=== PATIENT | female | born 1965 | race Caucasian/White ===

== ENCOUNTER → 2017-07-31 | Outpatient (CLI) | payer OTHER ==
--- NOTE | 2017-07-31 11:56 | MM ---
Reason for exam: clinical finding. Baseline mammogram. History: Family history of breast cancer in maternal aunt at age 70. Took hormonal contraceptives for 1 year. Indicated problem(s): palpable abnormality and pain in the right breast. Physical Findings: Nurse Summary: adenopathy 0.5cm outer left breast 11 o'clock (nurse cw). MG Diagnostic Mammo w CAD RONALD Bilateral CC and MLO view(s) were taken. LM and spot compression CC view(s) were taken of the right breast. There are scattered fibroglandular densities. There is a right upper outer quadrant 7mm mass, likely a lymph node. Ultrasound will be performed. No suspicious abnormality in the left breast. These results were verbally communicated with the patient and result sheet given to the patient on 07/31/17. ASSESSMENT: Incomplete: need additional imaging evaluation, BI-RAD 0 RECOMMENDATION: Ultrasound of the right breast. (upper outer quadrant)
--- NOTE | 2017-07-31 11:58 | USB ---
Reason for exam: additional evaluation requested from abnormal screening. History: Family history of breast cancer in maternal aunt at age 70. Took hormonal contraceptives for 1 year. US Breast Workup Limited RT Right limited breast ultrasound including focal area of concern, retroareolar and axilla demonstrates a 8 x 7 x 8mm oval, solid, hypoechoic lesion at the axilla. This appears to be located partially in the skin. Surgical consultation with excision of the palpable mass is recommended due to the risk of the chemical mastitis with biopsy. These results were verbally communicated with the patient and result sheet given to the patient on 07/31/17. ASSESSMENT: Suspicious, BI-RAD 4 RECOMMENDATION: Surgical consultation of the right breast. Called Dr. Montez with mammographic findings and has scheduled an appointment for the patient for 08/10/17 at 9:[address] Sweet. PRELIMINARY REPORT CALLED AND FAXED TO DR. SWEET ON 07/31/17.
== END | disposition home or self-care (01) ==
LOC: RADMAMWWP 10:16
PROVIDERS: ATTEND Family Medicine
DX: N63.11 Unspecified lump in the right breast, upper outer quadrant (principal); R92.8 Other abnormal and inconclusive findings on diagnostic imaging of breast
CPT/HCPCS: 77066

== ENCOUNTER → 2017-08-10 | Outpatient (CLI) | payer OTHER ==
[2017-08-10 10:16] VITALS: BP 120/66; PULSE 66; BMI 36.0
--- NOTE | 2017-08-10 11:13 | P.GSHP ---
History of Present Illness H&P Date: 08/10/17 Patient is a 52 year old white female with a complaint of a right upper outer quadrant breast palpable mass. It has been present since January 2017. It has not changed in size. At times it is painful. The patient denies any nipple discharge or changes. The patient had a recent mammogram 07/31/2017 which revealed no lesions of concern in the left breast and in the right breast a 7 mm mass for which ultrasound was recommended. Ultrasound revealed an 8 x 7 x 8 mm lesion in the right upper outer quadrant/axillary area of the breast. Surgical excision was recommended due to the location and the skin and risk of chemical mastitis with biopsy. family history: maternal aunt: uterine, cervical, breast, lung (4 different aunts) daughter: rhabdomyosarcoma, thyroid cancer mother: lung, a smoker menstral: 12 : 4 preg, 3 live births, first at 22, breast fed all menopause; still having periods regular, had an ablation bleeding BCP: none Hormones: none past surgical history: 1. parathyroid surgery 2. tubaligation past medical history: 1. diabetes 2. overweight ROS: HEENT: parathyroid resection lungs: asthma heart: none GI: none : none muscuskeletal: arthritis neurologic: none skin: none endocrine: DM, hypothyroid had radioactive iodine related to hyperthyroid in past - Constitutional Constitutional: Denies chills, Denies fever - EENT Comment: glasses to drive Eyes: denies blurred vision, denies pain Ears: deny: decreased hearing, earache, tinnitus Ears, nose, mouth and throat: Reports sore throat, Denies headache - Breasts Breasts: bilateral: as per HPI - Cardiovascular Cardiovascular: Denies chest pain, Denies shortness of breath - Respiratory Comment: asthma, pneumonia in past - Gastrointestinal Gastrointestinal: Reports nausea, Denies abdominal pain, Denies diarrhea, Denies vomiting - Genitourinary (Female) Genitourinary: Denies dysuria, Denies hematuria - Musculoskeletal Comment: arthritis - Integumentary Integumentary: Denies pruritus, Denies rash - Neurological Neurological: Denies numbness, Denies weakness - Psychiatric Psychiatric: Denies anxiety, Denies depression - Endocrine Comment: hypothyroid, diabetis - Hematologic/Lymphatic Comment: no bleeding abnormalities - Allergic/Immunologic Allergic/Immunologic: Reports seasonal allergies Past Medical History Past Medical History: Asthma, Diabetes Mellitus, Hyperlipidemia, Hypertension, Osteoarthritis (OA), Thyroid Disorder Additional Past Medical History / Comment(s): ANEMIA, ASTHMA-COLD WEATHER & EXERCISE INDUCED (NO MEDS). BACK AND ARTHRITIS PAIN IN KNEES. hx of graves disease History of Any Multi-Drug Resistant Organisms: None Reported Past Surgical History: Tubal Ligation, Uterine Ablation Past Anesthesia/Blood Transfusion Reactions: No Reported Reaction Past Psychological History: No Psychological Hx Reported Smoking Status: Never smoker Past Alcohol Use History: Rare Past Drug Use History: None Reported - Past Family History Mother Family Medical History: Cancer Additional Family Medical History / Comment(s): LUNG AND LIVER CANCER Daughter(s) Family Medical History: Cancer Additional Family Medical History / Comment(s): RHABDOMYOSARCOMA & HURTHLE CELL CANCER OF THYROID Medications and Allergies Home Medications Medication Instructions Recorded Confirmed Type Cetirizine HCl [Zyrtec] 10 mg PO DAILY PRN 12/21/14 08/10/17 History Multivitamins, Thera [Theragran] 1 each PO DAILY 12/21/14 08/10/17 History Simvastatin [Zocor] 40 mg PO HS 12/21/14 08/10/17 History Triamterene-Hctz 37.5-25Mg 1 each PO DAILY 12/21/14 08/10/17 History [Dyazide] amLODIPine [Norvasc] 10 mg PO DAILY 12/21/14 08/10/17 History traMADol HCl [Ultram] 50 mg PO Q6H PRN 12/21/14 08/10/17 History Levothyroxine Sodium [Synthroid] 175 mcg PO DAILY 12/22/14 08/10/17 History Allergies Allergy/AdvReac Type Severity Reaction Status Date / Time Penicillins Allergy Severe Anaphylaxis Verified 12/21/14 08:41 FRESH FRUITS AND VEGETABLES Allergy Severe Anaphylaxis Uncoded 12/21/14 08:40 BETA BLOCKERS Allergy Anaphylaxis Uncoded 12/22/14 10:16 Surgical - Exam Vital Signs Pulse BP 66 120/66 08/10/17 10:09 08/10/17 10:09 - General moderate distress, obese - Eyes normal ocular movement - ENT no hearing loss, no congestion - Neck incision clean no masses, trachea midline, no lymphadectomy, no venous distension - Respiratory normal respiratory effort, clear to auscultation - Cardiovascular Rhythm: regular Heart Sounds: normal: S1, S2 - Abdomen Abdomen: soft, non tender, no guarding, no rigid, no rebound - Neurologic no disoriented, no combative - Musculoskeletal normal gait, normal posture - Psychiatric oriented to time, oriented to person, oriented to place, speech is normal, memory intact Breast examination: Right breast: in the upper outer quadrant area there is approximately an 8 mm firm nodular area corresponding to that seen on mammogram and ultrasound no other dominant masses or nodules of concern Left breast: Multiple positional exam no dominant mass or nodules of concern Bilateral axilla: No adenopathy of concern Assessment and Plan Assessment: Impression/plan: 1. Palpable abnormality right breast not conducive to a core biopsy secondary to peripheral location involving the skin. 4 recommend as per radiology surgical excision 2. Diabetes 3. arthritis 4. History of pneumonia in the past 5. Hypothyroidism/status post resection of parathyroid Plan: 1. Surgical excision of right breast Mass. 2. Medical management of medical conditions Cc: Dr. Montez
== END ==
LOC: WWCWWP 10:06
PROVIDERS: ATTEND Surgery
DX: Z53.9 Procedure and treatment not carried out, unspecified reason (principal)

== ENCOUNTER 2017-08-21 11:54 | Day surgery (SDC) | payer OTHER ==
[2017-08-15 11:45] VITALS: BMI 33.8
[~2017-08-21 11:54] MED LIST: CLINDAMYCIN 900 MG in DEXTROSE 5% IN WATER 50 ML IVPB ONE; DEXAMETHASONE SOD PHOSPHATE 10 MG/ML 1 ML VIAL IV ONE; HYDROmorphone 0.5 MG/0.5 ML SYRINGE IVP PRN; LACTATED RINGERS 1,000 ML IV SCH; MORPHINE SULFATE 2 MG/ML SYRINGE IV PRN; ONDANSETRON 4 MG/2 ML VIAL IVP ONE; ONDANSETRON 4 MG/2 ML VIAL IVP PRN
[2017-08-21 12:31] VITALS: TEMP 99.1
[2017-08-21 12:56] LABS: Glucose,Whole Blood 123 mg/dL (75-99)
[2017-08-21] MEDS ORDERED: LIDOCAINE 1% 20 ML VIAL (10MG/ML) FOR IV START INTRADERMA ONE (13:04)
[2017-08-21] MEDS ORDERED: HEPARIN SODIUM,PORCINE 5,000 UNIT/ML 1 ML VIAL SQ ONE (14:00)
[2017-08-21] MEDS ORDERED: fentaNYL (PF) 50 MCG/ML 2 ML AMP ONE (14:11)
[2017-08-21] MEDS ORDERED: LIDOCAINE 1% INJ 10MG/ML (20 ML MDV) ONE (14:11)
[2017-08-21] MEDS ORDERED: MIDAZOLAM 2 MG/2 ML VIAL ONE (14:11)
[2017-08-21] MEDS ORDERED: PROPOFOL 10 MG/ML 20 ML VIAL IV ONE (14:11)
[2017-08-21] MEDS ORDERED: LIDOCAINE 1% INJ 10MG/ML (20 ML MDV) SQ ONE ×2 (14:27)
[2017-08-21] MEDS ORDERED: LACTATED RINGERS 1,000 ML IV ONE (14:35)
--- NOTE | 2017-08-21 14:35 | P.OP ---
Date of Procedure: 08/21/17 Preoperative Diagnosis: Superficial nodule right lateral breast Postoperative Diagnosis: Same Procedure(s) Performed: Excision lesion right lateral breast Anesthesia: MAC Surgeon: Cecilia Sweet Estimated Blood Loss (ml): 1 IV fluids (ml): 200 Pathology: other (Right lateral breast tissue) Condition: stable Disposition: PACU Indications for Procedure: Lesion of concern right lateral breast, biopsy core biopsy not done as this was too superficial Operative Findings: Nodule right lateral breast Description of Procedure: Patient was taken to the operating room and following sedation the right lateral breast was prepped and draped in a sterile fashion. Wide excision of the palpable abnormality was performed. The area was anesthetized using 1% lidocaine. After assured that hemostasis was attained the deep tissues were closed with a 3-0 Vicryl suture. The skin was closed with 4-0 Monocryl. The patient tolerated the procedure in stable condition. All instrument and sponge counts correct at the end of the case. The specimen was painted for orientation.
--- NOTE | 2017-08-21 14:37 | P.DS ---
Providers Attending physician: Cecilia Sweet Primary care physician: Wood Montez Plan - Discharge Summary New Discharge Prescriptions: No Action Cetirizine HCl [Zyrtec] 10 mg PO DAILY traMADol HCl [Ultram] 50 mg PO Q6H PRN PRN Reason: Pain Triamterene-Hctz 37.5-25Mg [Dyazide] 1 each PO DAILY Simvastatin [Zocor] 40 mg PO HS Multivitamins, Thera [Theragran] 1 each PO DAILY amLODIPine [Norvasc] 10 mg PO DAILY Levothyroxine Sodium [Synthroid] 175 mcg PO DAILY metFORMIN HCL [Glucophage] 500 mg PO BID Ondansetron HCl [Zofran] 4 mg PO DAILY PRN PRN Reason: Nausea Discharge Medication List Cetirizine HCl [Zyrtec] 10 mg PO DAILY 12/21/14 [History] Multivitamins, Thera [Theragran] 1 each PO DAILY 12/21/14 [History] Simvastatin [Zocor] 40 mg PO HS 12/21/14 [History] Triamterene-Hctz 37.5-25Mg [Dyazide] 1 each PO DAILY 12/21/14 [History] amLODIPine [Norvasc] 10 mg PO DAILY 12/21/14 [History] traMADol HCl [Ultram] 50 mg PO Q6H PRN 12/21/14 [History] Levothyroxine Sodium [Synthroid] 175 mcg PO DAILY 12/22/14 [History] metFORMIN HCL [Glucophage] 500 mg PO BID 08/15/17 [History] Ondansetron HCl [Zofran] 4 mg PO DAILY PRN 08/21/17 [History] Follow up Appointment(s)/Referral(s): Cecilia Sweet MD [STAFF PHYSICIAN] - 1 Week Activity/Diet/Wound Care/Special Instructions: Do not Drive today Discharge Disposition: HOME SELF-CARE
[2017-08-21 14:57] VITALS: RESP 18
[2017-08-21 15:21] VITALS: BP 124/79; PULSE 79
== END 2017-08-21 15:25 | disposition home or self-care (01) ==
LOC: OR 11:54
PROVIDERS: ATTEND Surgery
DX: L72.0 Epidermal cyst (principal); E11.9 Type 2 diabetes mellitus without complications; M19.90 Unspecified osteoarthritis, unspecified site; E89.2 Postprocedural hypoparathyroidism; E66.3 Overweight; Z68.33 Body mass index [BMI] 33.0-33.9, adult; J45.909 Unspecified asthma, uncomplicated; E78.5 Hyperlipidemia, unspecified; I10 Essential (primary) hypertension; D64.9 Anemia, unspecified; Z79.890 Hormone replacement therapy; Z79.899 Other long term (current) drug therapy; Z79.84 Long term (current) use of oral hypoglycemic drugs; Z98.51 Tubal ligation status; Z88.0 Allergy status to penicillin; Z88.8 Allergy status to other drugs, medicaments and biological substances; Z91.018 Allergy to other foods
CPT/HCPCS: 81025; 88304; 19120; J2250; J1100; J2405; J2001; J3010; J2704; 88305

== ENCOUNTER → 2017-08-31 | Outpatient (CLI) | payer OTHER ==
[2017-08-31 11:06] VITALS: BP 132/71; PULSE 75; BMI 26.6
--- NOTE | 2017-08-31 11:25 | P.PN ---
Progress Note - Text Progress Note Date: 08/31/17 post op: path: sebaceous cyst incision: clean and dry plan: follow up as needed and 1 year for breast exam CC: DR. Montez
== END | disposition home or self-care (01) ==
LOC: WWCWWP 10:52
PROVIDERS: ATTEND Surgery
DX: Z01.419 Encounter for gynecological examination (general) (routine) without abnormal findings (principal)

== ENCOUNTER → 2017-10-15 | Outpatient (CLI) | payer OTHER ==
--- NOTE | 2017-10-15 11:49 | EST ---
EXERCISE STRESS AGE: 52 SEX: F HT: 5'2" WT: 200 PROTOCOL: Jas Stress Test STAGE: I DURATION OF EXERCISE: 4:30 HEART RATE REST: 64 BLOOD PRESSURE REST: 125/71 MAXIMUM HEART RATE ACHIEVED: 149 MAXIMUM BLOOD PRESSURE: 198/81 85% MPHR: 142 100% MPHR: 167 METS: 6.0 INDICATIONS: Palpitations. CLINICAL INFORMATION: Baseline EKG shows sinus rhythm, normal axis, normal intervals. Patient exercised on Jas protocol for a total of 4.5 minutes, achieving 6 METs, 89% of predicted maximal heart rate without chest pain or diagnostic ST-segment depression. Patient had frequent ventricular ectopy including a 5-beat run of nonsustained VT on treadmill. CONCLUSION: 1. Poor exercise tolerance. 2. Negative stress test by EKG criteria. 3. Exercise induced ventricular ectopy including nonsustained VT. VICENTE / KIMN: [id number] /
--- NOTE | 2017-10-24 13:37 | EM ---
EVENT MONITOR SEVEN-DAY EVENT MONITOR: DATE OF SERVICE: 10/15/2017 INDICATIONS: Palpitations. The patient was monitored for one week. The baseline rhythm appeared to be a sinus mechanism. During this one week monitoring, the patient did have multiple episodes of sinus tachycardia with a heart rate around 120 beats per minute. There is no evidence of any arrhythmia noted in the term of atrial fibrillation or atrial flutter or any supraventricular tachycardia. No evidence of any ventricular ectopic events noted. No evidence of any sinus pause or sinus arrest seen. The patient reported no symptoms. CONCLUSION: 1. This is a one week event monitor. 2. Sinus rhythm as a baseline mechanism. 3. Few episodes of sinus tachycardia with a heart rate of 110 to 120 beats per minute. 4. No evidence of any bradyarrhythmia noted. 5. There is no evidence of any sinus pause or sinus arrest. 6. The patient reported no symptoms. MMODL / IJN: [id number] /
== END | disposition home or self-care (01) ==
LOC: RADNMMAIN 10:52
PROVIDERS: ATTEND Family Medicine
DX: R00.2 Palpitations (principal)
CPT/HCPCS: 93017; 93270; 93271

== ENCOUNTER → 2018-04-22 | Outpatient (CLI) | payer OTHER ==
--- NOTE | 2018-04-22 10:35 | XR ---
EXAMINATION TYPE: XR shoulder complete LT DATE OF EXAM: 04/22/2018 COMPARISON: NONE HISTORY: Pain TECHNIQUE: Three views are submitted. FINDINGS: The osseous structures are intact. There is no acute fracture or dislocation. Arthropathy of the AC joint. IMPRESSION: 1. No acute process.
== END ==
LOC: RADXRMAIN 10:15
PROVIDERS: ATTEND Family Medicine
DX: M25.512 Pain in left shoulder (principal)

== ENCOUNTER → 2018-07-11 | Outpatient (CLI) | payer OTHER ==
--- NOTE | 2018-07-13 18:06 | MR ---
EXAMINATION TYPE: MR shoulder LT wo con DATE OF EXAM: 07/11/2018 COMPARISON: None HISTORY: Pain in left shoulder TECHNIQUE: Multiplanar, multisequence imaging of the left shoulder is performed without contrast. FINDINGS: Subscapularis tendon is intact. Biceps tendon is intact. There is some spurring at the AC joint. Ther e is 5 mm focus of increased signal in the supraspinatus tendon proximal to the attachment on the gre ater tuberosity. This is consistent with a full-thickness tear. The glenoid monroe appear intact. I see no bony destructive process. IMPRESSION: There is small full-thickness tear of the supraspinatus tendon. No retraction. Hypertrophic spurring at the AC joint without significant subacromial impingement. No fracture.
== END | disposition home or self-care (01) ==
LOC: RADMRIMAIN 11:37
PROVIDERS: ATTEND Orthopaedic Surgery
DX: M75.122 Complete rotator cuff tear or rupture of left shoulder, not specified as traumatic (principal); M89.312 Hypertrophy of bone, left shoulder

== ENCOUNTER 2018-08-16 06:37 | Day surgery (SDC) | payer OTHER ==
[2018-08-13 15:59] VITALS: BMI 36.6
--- NOTE | 2018-08-15 16:33 | HP ---
HISTORY AND PHYSICAL CHIEF COMPLAINT: Left shoulder pain. HISTORY OF PRESENT ILLNESS: The patient is a 53-year-old [id number]-[id number] brokerage clerk/senior business analyst who presents with left shoulder pain, worsening over the past 6 months. She notes stiffness, soreness and pain with overhead activity. She is also having significant night symptoms. She has tried medications and therapy, with minimal relief. PAST MEDICAL HISTORY: Significant for: 1. Asthma. 2. Type 2 diabetes. 3. Hypercholesterolemia. 4. Hypertension. 5. Hypothyroidism. PAST SURGICAL HISTORY: Negative. MEDICATIONS: 1. Amlodipine. 2. Januvia. 3. Metformin. 4. Metoprolol. 5. Synthroid. 6. Cholesterol medications. 7. Hydrochlorothiazide. ALLERGIES: 1. PENICILLIN. 2. BETA BLOCKERS. FAMILY HISTORY: Significant for cancer. SOCIAL HISTORY: Negative for current tobacco or alcohol use. REVIEW OF SYSTEMS: Sixteen-point review of systems otherwise reviewed and noncontributory. PHYSICAL EXAMINATION: On examination, the patient is approximately 5 feet 2 inches, 213 pounds of endomorphic habitus. HEENT exam is nonfocal. Neck is supple. Passive motion left shoulder. Forward elevation 90 degrees. Actively she is able to forward elevate 70 degrees. External rotation with arm at side is 20 degrees, internal rotation into the buttock. Motor strength is 5 minus over 5 for abduction and external rotation. Impingement test, Neer test and Speed test are positive. Distal neurovascular exam otherwise appears to be intact in the left upper extremity. MRI report of left shoulder 07/11/2018 shows a small full-thickness tear involving the supraspinatus tendon. IMPRESSION: 1. Left shoulder impingement with symptomatic rotator cuff tear. 2. Left shoulder adhesive capsulitis. 3. [id number] diabetes. RECOMMENDATION: I talked to the patient at length regarding her condition along with treatment options. At this point she remains quite symptomatic despite conservative measures. After thorough discussion, she opted to proceed with surgery. We will plan to proceed with arthroscopic evaluation and probable subacromial decompression, possible rotator cuff debridement versus repair, in addition to possible manipulation under anesthesia. We will likely perform that as an outpatient procedure. Risks and benefits were discussed at length in layman's terms. MMODL / IJN: [id number] /
[~2018-08-16 06:37] MED LIST changes: +LIDOCAINE 1% 20 ML VIAL (10MG/ML) FOR IV START INTRADERMA PRN; -MORPHINE SULFATE 2 MG/ML SYRINGE IV PRN; -ONDANSETRON 4 MG/2 ML VIAL IVP PRN; +Pre Op ABX Message 1 EACH MISC MISCELLANE ONE; +SCOPOLAMINE 1.5MG/72HR PATCH TRANSDERM ONE
[2018-08-16] MEDS ORDERED: MIDAZOLAM (PF) 2 MG/2 ML VIAL IVP ONE (07:23)
[2018-08-16 07:32] LABS: Glucose,Whole Blood 158 mg/dL (75-99)
--- NOTE | 2018-08-16 07:55 | P.ONQ ---
Anesthesiology Proc Note - PNB - Peripheral Nerve Block Performed Left Interscalene Single Time Out Performed: Yes Procedure Start Time: : Procedure Stop Time: : Indication: Acute Post-Operative Pain, Analgesia, Requested by physician Sedation Type: Sedate with meaningful contact maintained Preparation: Sterile Prep Position: Supine Catheter: None Needle Types: On-Q Needle Size: 50mm (2") Needle Gauge: 21 Technique: Ultrasound Injectate: Other (see comment) (4mg dexamethasone) Blood Aspirated: No Pain Paresthesia on Injection Noted: No Resistance on Injection: Normal Events: Uneventful and Well Tolerated
[2018-08-16] MEDS ORDERED: fentaNYL (PF) 50 MCG/ML 2 ML AMP ONE (07:58)
[2018-08-16] MEDS ORDERED: ROPIVACAINE 5 MG/ML 30 ML VIAL ONE (07:58)
[2018-08-16] MEDS ORDERED: SUCCINYLCHOLINE CHLORIDE 100 MG/5 ML SYR IV ONE (07:58)
[2018-08-16] MEDS ORDERED: PROPOFOL 10 MG/ML 20 ML VIAL IV ONE (07:58)
[2018-08-16] MEDS ORDERED: MIDAZOLAM 2 MG/2 ML VIAL ONE (07:58)
[2018-08-16] MEDS ORDERED: LIDOCAINE 1% INJ 10MG/ML (20 ML MDV) ONE (07:58)
[2018-08-16] MEDS ORDERED: DEXAMETHASONE SOD PHOSPHATE 4 MG/ML 1 ML VIAL ONE (07:58)
[2018-08-16] MEDS ORDERED: ePHEDrine SULFATE/0.9% NACL/PF 50 MG/5 ML SYRINGE IV ONE (07:58)
[2018-08-16] MEDS ORDERED: EPINEPHrine (PF) 1 ML in SODIUM CHLORIDE 0.9% IRRIGATIO 3,000 ML IRRIGATION ONE ×8 (08:08)
[2018-08-16] MEDS ORDERED: LACTATED RINGERS 1,000 ML IV ONE ×4 (09:12)
--- NOTE | 2018-08-16 09:22 | P.OP ---
Date of Procedure: 08/16/18 Preoperative Diagnosis: Left shoulder impingement/rotator cuff tear/adhesive capsulitis Postoperative Diagnosis: Same in addition to synovitis Procedure(s) Performed: Left shoulder arthroscopic subacromial decompression/rotator cuff repair/manipulation under anesthesia/synovectomy Implants: Arthrex 4.75 mm swivel lock anchor 1 Anesthesia: charli DIAZ Surgeon: Darion Kenny Environmental Field Team Member #1: Wu Feliciano Estimated Blood Loss (ml): 10 Pathology: none sent Condition: stable Disposition: PACU Indications for Procedure: The patient's a 53-year-old female who presents with progressive left shoulder pain and stiffness despite conservative measures. A discussion of the risks and benefits of continued conservative measures versus operative intervention was made with patient. She opted to proceed with surgery. Operative risks to include infection, neurovascular injury, development of blood clots, possible incomplete resolution of symptoms, possible worsening symptoms and need for subsequent procedures was discussed. Informed consent was obtained. Operative Findings: As below Description of Procedure: The patient was brought to the operating room, and after induction of general anesthesia was placed in a beachchair position. A preoperative interscalene block was placed for postoperative analgesia. I examined the left shoulder. There were significant adhesions and block to passive motion. I gently manipulated her shoulder with her arm at her side initially obtaining 60 of external rotation. Moderate adhesions were encountered. I then obtained full forward elevation. Again moderate adhesions were encountered. The left upper extremity was prepped and draped in normal fashion. The bony outlines the acromion, distal clavicle, and coracoid process were outlined with a skin marker. The glenohumeral joint was inflated with 50 mL of saline utilizing a spinal needle from posterior approach. A posterior portal was made through a 5 mm skin incision 1 cm medial and inferior to the posterior lateral border time. A blunt trocar was used to easily into the joint. Diagnostic arthroscopy was performed. An anterior portal was made just lateral to the coracoid process entering the joint above the subscapularis tendon. The subscapularis tendon appeared to be intact. There was significant synovitis of the rotator interval that was debrided with a motorized shaver and with the aid of electrocautery. Anterior labrum was intact. The inferior recess was inspected. The posterior labrum was intact. The biceps appeared to be intact as well as the anchor. On inspection the rotator cuff it appeared to be intact on the articular surface. A lateral portal was made 2 centimeters inferior to the anterior lateral border of the acromion. The soft tissue on the undersurface of the acromion was debrided with a motorized shaver and electrocautery clearly defining the anterior medial and lateral borders as well as the distal clavicle. An anterior inferior acromioplasty was performed with a motorized marni starting anterolateral, then extending this posteriorly, then extending this medially. I converted to a flat acromion and this was verified in the posterior and lateral viewing portals. On inspection the rotator cuff, a high-grade partial-thickness tear involving the anterior aspect the supraspinatus was noted measuring 1 cm. This tear was completed with a shaver. The greater tuberosity was lightly decorticating with a shaver down to a bleeding bony surface. A #2 fiber tape was passed through the rotator cuff with a scorpion suture passer. A lateral anchor was then placed utilizing the appropriate starting awl. A 4.75 mm swivel lock anchor was placed. Good purchase was obtained. Final arthroscopic view showed adequate compression at the footprint. The arthroscope was then removed. The portals were closed with simple 3-0 nylon sutures. A sterile dressing was applied in addition to a sling. The patient was then awoken from general anesthesia and transferred to recovery room in good condition. Blood loss was estimated at 10 mL. No complications were incurred. Sponge and needle counts were correct in the case. Ayan TURNER assisted and the major components of the case to include arm positioning, anchor placement, and rotator cuff repair.
[2018-08-16 09:26] VITALS: TEMP 97
[2018-08-16 09:38] LABS: Glucose,Whole Blood 209 mg/dL (75-99)
[2018-08-16 10:57] VITALS: RESP 20
[2018-08-16 11:25] VITALS: BP 145/81; PULSE 99
== END 2018-08-16 11:33 | disposition home or self-care (01) ==
LOC: OR 06:37
PROVIDERS: ATTEND Orthopaedic Surgery
DX: S46.012A Strain of muscle(s) and tendon(s) of the rotator cuff of left shoulder, initial encounter (principal); M75.42 Impingement syndrome of left shoulder; M75.02 Adhesive capsulitis of left shoulder; M65.812 Other synovitis and tenosynovitis, left shoulder; J45.909 Unspecified asthma, uncomplicated; E11.9 Type 2 diabetes mellitus without complications; E78.00 Pure hypercholesterolemia, unspecified; I10 Essential (primary) hypertension; E03.9 Hypothyroidism, unspecified; E66.9 Obesity, unspecified; Z68.36 Body mass index [BMI] 36.0-36.9, adult; Z79.899 Other long term (current) drug therapy; Z79.84 Long term (current) use of oral hypoglycemic drugs; Z79.890 Hormone replacement therapy; Z80.9 Family history of malignant neoplasm, unspecified; Z88.0 Allergy status to penicillin; Z88.8 Allergy status to other drugs, medicaments and biological substances
CPT/HCPCS: 29827; 29826; 64415; C1713 ×2; C1894; J2250 ×2; J1100 ×2; J2405; J0171; J2001; J3010; J2795; J0330; J2704

== ENCOUNTER 2019-10-12 17:30 | Emergency (ER) | payer OTHER ==
[2019-10-12] MEDS ORDERED: CYCLOBENZAPRINE 10 MG TAB PO STA (18:30)
--- NOTE | 2019-10-12 18:49 | XR ---
EXAMINATION TYPE: XR chest 2V DATE OF EXAM: 10/12/2019 COMPARISON: NONE HISTORY: Chest pain TECHNIQUE: 2 views FINDINGS: Heart and mediastinum are normal. Lungs are clear. Diaphragm is normal. Bony thorax appears normal. IMPRESSION: Normal chest.
--- NOTE | 2019-10-12 19:05 | ED ---
General Adult HPI - General Chief complaint: Neck Pain/Injury Stated complaint: neck/shoulder pain Time Seen by Provider: 10/12/19 17:57 Source: patient, RN notes reviewed Mode of arrival: ambulatory Limitations: no limitations - History of Present Illness Initial comments: 54-year-old female With a past medical history of hyperlipidemia, hypertension, diabetes mellitus, asthma presents to the emergency department for a chief complaint of upper back pain. Patient has had upper back pain since today after she worked all day on her computer. States she hunches over the computer and this was causing spasms. States it goes up into her neck. Patient states it does hurt to move her neck. Patient reports it feels like spasms around her shoulder blades. Patient reports this happened to her several years ago as well. States she tried tramadol which helped for 4 hours and the pain returned. Patient states she is here because she would like a muscle relaxer.Patient has no other complaints at this time including shortness of breath, chest pain, abdominal pain, nausea or vomiting, headache, or visual changes. - Related Data Home Medications Medication Instructions Recorded Confirmed Cetirizine HCl [Zyrtec] 10 mg PO DAILY 12/21/14 08/13/18 Multivitamins, Thera [Theragran] 1 each PO DAILY 12/21/14 08/13/18 Simvastatin [Zocor] 40 mg PO HS 12/21/14 08/16/18 Triamterene-Hctz 37.5-25Mg 1 each PO BID 12/21/14 08/16/18 [Dyazide] traMADol HCl [Ultram] 50 mg PO Q4H PRN 12/21/14 08/16/18 Levothyroxine Sodium [Synthroid] 175 mcg PO DAILY 12/22/14 08/13/18 metFORMIN HCL [Glucophage] 500 mg PO BID 08/15/17 08/16/18 Albuterol Inhaler (Mhu) [Ventolin 1 - 2 puff INHALATION RT-Q6H PRN 08/13/18 0 08/13/18 Hfa Inhaler] Empagliflozin [Jardiance] 10 mg PO DAILY 08/13/18 08/13/18 sitaGLIPtin [Januvia] 25 mg PO DAILY 08/13/18 08/13/18 Previous Rx's Medication Instructions Recorded HYDROcodone/APAP 7.5-325MG [[place] 1 each PO Q6HR PRN #28 tab 08/16/18 7.5] Cyclobenzaprine [Flexeril] 10 mg PO TID #14 tab 10/12/19 Allergies Allergy/AdvReac Type Severity Reaction Status Date / Time Penicillins Allergy Severe Anaphylaxis Verified 10/12/19 17:42 FRESH FRUITS AND VEGETABLES Allergy Severe Anaphylaxis Uncoded 10/12/19 17:42 BETA BLOCKERS Allergy Anaphylaxis Uncoded 10/12/19 17:42 Review of Systems ROS Statement: Those systems with pertinent positive or pertinent negative responses have been documented in the HPI. ROS Other: All systems not noted in ROS Statement are negative. Past Medical History Past Medical History: Asthma, Diabetes Mellitus, Hyperlipidemia, Hypertension, Osteoarthritis (OA), Thyroid Disorder Additional Past Medical History / Comment(s): HX RIGHT BREAST MASS, HX ANEMIA, ASTHMA-COLD WEATHER & EXERCISE INDUCED (NO MEDS). BACK AND ARTHRITIS PAIN IN KNE ES. Hx of graves disease, HAD RADIOACTIVE IODINE TX. VARICOSE VEINS. History of Any Multi-Drug Resistant Organisms: None Reported Past Surgical History: Tubal Ligation, Uterine Ablation Additional Past Surgical History / Comment(s): PARATHYROID RESECTION R/T TUMOR Past Anesthesia/Blood Transfusion Reactions: No Reported Reaction Past Psychological History: No Psychological Hx Reported Past Alcohol Use History: Rare Past Drug Use History: None Reported - Past Family History Mother Family Medical History: Cancer Additional Family Medical History / Comment(s): LUNG AND LIVER CANCER Daughter(s) Family Medical History: Cancer Additional Family Medical History / Comment(s): RHABDOMYOSARCOMA & HURTHLE CELL CANCER OF THYROID General Exam Limitations: no limitations General appearance: alert, in no apparent distress Head exam: Present: atraumatic, normocephalic, normal inspection Eye exam: Present: normal appearance, PERRL, EOMI. Absent: scleral icterus, conjunctival injection, periorbital swelling ENT exam: Present: normal exam, mucous membranes moist Neck exam: Present: normal inspection, full ROM. Absent: tenderness, meningismus, lymphadenopathy Respiratory exam: Present: normal lung sounds bilaterally. Absent: respiratory distress, wheezes, rales, rhonchi, stridor Cardiovascular Exam: Present: regular rate, normal rhythm, normal heart sounds. Absent: systolic murmur, diastolic murmur, rubs, gallop, clicks GI/Abdominal exam: Present: soft, normal bowel sounds. Absent: distended, tenderness, guarding, rebound, rigid Back exam: Present: other (Tenderness of bilateral trapezius muscles) Course Vital Signs 10/12/19 10/12/19 17:39 19:51 Temperature 98.1 F Pulse Rate 84 76 Respiratory 16 18 Rate Blood Pressure 147/83 128/80 O2 Sat by Pulse 95 95 Oximetry EKG Findings - EKG Comments: EKG Findings:: Normal sinus rhythm, ventricular rate 67, NH interval 184, QTC 3 78 Medical Decision Making - Medical Decision Making Vitals are stable. Patient has tenderness to the bilateral trapezius muscles. Some pain with movement of the neck. Patient reports this started after she was working on a computer all day. I did perform thorough evaluation of patient. Laboratory evaluation was obtained which was generally unremarkable. Troponin is negative. D-dimer is negative. EKG showed a normal sinus rhythm. Patient was given pain medication and had significant improvement in pain. Given tenderness to palpation and history of working over computer all day this is likely musculoskeletal in nature. Patient requesting discharge. Will follow up with her doctor. Will return here for any worsening symptoms. - Lab Data Result diagrams: 10/12/19 19:51 10/12/19 19:51 Lab Results 10/12/19 10/12/19 10/12/19 Range/Units 19:51 19:51 19:51 WBC 14.4 H (3.8-10.6) k/uL RBC 4.93 (3.80-5.40) m/uL Hgb 16.1 H (11.4-16.0) gm/dL Hct 46.6 H (34.0-46.0) % MCV 94.4 (80.0-100.0) fL MCH 32.6 (25.0-35.0) pg MCHC 34.6 (31.0-37.0) g/dL RDW 13.6 (11.5-15.5) % Plt Count 386 (150-450) k/uL Neutrophils % 74 % Lymphocytes % 19 % Monocytes % 4 % Eosinophils % 1 % Basophils % 0 % Neutrophils # 10.7 H (1.3-7.7) k/uL Lymphocytes # 2.8 (1.0-4.8) k/uL Monocytes # 0.6 (0-1.0) k/uL Eosinophils # 0.2 (0-0.7) k/uL Basophils # 0.0 (0-0.2) k/uL PT 10.3 (9.0-12.0) sec INR 1.0 (<1.2) APTT 27.9 (22.0-30.0) sec D-Dimer <0.17 (<0.60) mg/L FEU Sodium 138 (137-145) mmol/L Potassium 3.6 (3.5-5.1) mmol/L Chloride 89 L (98-107) mmol/L Carbon Dioxide 36 H (22-30) mmol/L Anion Gap 13 mmol/L BUN 16 (7-17) mg/dL Creatinine 0.98 (0.52-1.04) mg/dL Est GFR (CKD-EPI)AfAm 75 (>60 ml/min/1.73 sqM) Est GFR (CKD-EPI)NonAf 65 (>60 ml/min/1.73 sqM) Glucose 144 H (74-99) mg/dL Calcium 10.9 H (8.4-10.2) mg/dL Magnesium 1.9 (1.6-2.3) mg/dL Total Bilirubin 0.8 (0.2-1.3) mg/dL AST 33 (14-36) U/L ALT 36 H (4-34) U/L Alkaline Phosphatase 111 (38-126) U/L Troponin I (0.000-0.034) ng/mL Total Protein 8.7 H (6.3-8.2) g/dL Albumin 5.3 H (3.5-5.0) g/dL Lipase 44 (23-300) U/L // Range/Units 19:51 WBC (3.8-10.6) k/uL RBC (3.80-5.40) m/uL Hgb (11.4-16.0) gm/dL Hct (34.0-46.0) % MCV (80.0-100.0) fL MCH (25.0-35.0) pg MCHC (31.0-37.0) g/dL RDW (11.5-15.5) % Plt Count (150-450) k/uL Neutrophils % % Lymphocytes % % Monocytes % % Eosinophils % % Basophils % % Neutrophils # (1.3-7.7) k/uL Lymphocytes # (1.0-4.8) k/uL Monocytes # (0-1.0) k/uL Eosinophils # (0-0.7) k/uL Basophils # (0-0.2) k/uL PT (9.0-12.0) sec INR (<1.2) APTT (22.0-30.0) sec D-Dimer (<0.60) mg/L FEU Sodium (137-145) mmol/L Potassium (3.5-5.1) mmol/L Chloride (98-107) mmol/L Carbon Dioxide (22-30) mmol/L Anion Gap mmol/L BUN (7-17) mg/dL Creatinine (0.52-1.04) mg/dL Est GFR (CKD-EPI)AfAm (>60 ml/min/1.73 sqM) Est GFR (CKD-EPI)NonAf (>60 ml/min/1.73 sqM) Glucose (74-99) mg/dL Calcium (8.4-10.2) mg/dL Magnesium (1.6-2.3) mg/dL Total Bilirubin (0.2-1.3) mg/dL AST (14-36) U/L ALT (4-34) U/L Alkaline Phosphatase (38-126) U/L Troponin I <0.012 (0.000-0.034) ng/mL Total Protein (6.3-8.2) g/dL Albumin (3.5-5.0) g/dL Lipase (23-300) U/L Disposition Clinical Impression: Back pain Disposition: HOME SELF-CARE Condition: Good Instructions (If sedation given, give patient instructions): Muscle Spasm (ED), Thoracic Back Strain (ED) Additional Instructions: Please take Motrin and Tylenol for pain. Take tramadol as directed by your doctor. Take muscle relaxer as needed. Do not drive or operate machinery while taking tramadol or muscle relaxer. Follow-up with your doctor tomorrow. Return here to the emergency room for any worsening symptoms. Prescriptions: Cyclobenzaprine [Flexeril] 10 mg PO TID #14 tab Is patient prescribed a controlled substance at d/c from ED?: No Referrals: Wood Montez DO [Primary Care Provider] - 1-2 days Time of Disposition: 20:48
[2019-10-12] MEDS ORDERED: MORPHINE SULFATE 4 MG/ML SYRINGE IV STA (19:38)
[2019-10-12] MEDS ORDERED: ONDANSETRON 4 MG/2 ML VIAL IVP STA (19:39)
[2019-10-12 19:53] VITALS: RESP 18
[2019-10-12 20:14] LABS: Albumin 5.3 g/dL (3.5-5.0); Calcium 10.9 mg/dL (8.4-10.2); Magnesium 1.9 mg/dL (1.6-2.3); Partial Thromboplastin Time 27.9 sec (22.0-30.0); Potassium 3.6 mmol/L (3.5-5.1); Prothrombin Time 10.3 sec (9.0-12.0); Total Bilirubin 0.8 mg/dL (0.2-1.3); Total Protein 8.7 g/dL (6.3-8.2)
[2019-10-12 20:15] LABS: Basophils % (A) 0 %; Eosinophils # (A) 0.2 k/uL (0-0.7); Eosinophils % (A) 1 %; HCT 46.6 % (34.0-46.0); HGB 16.1 gm/dL (11.4-16.0); Lymphocytes # (A) 2.8 k/uL (1.0-4.8); Lymphocytes % (A) 19 %; MCH 32.6 pg (25.0-35.0); MCHC 34.6 g/dL (31.0-37.0); MCV 94.4 fL (80.0-100.0); Monocytes # (A) 0.6 k/uL (0-1.0); Monocytes % (A) 4 %; Neutrophils # (A) 10.7 k/uL (1.3-7.7); Neutrophils % (A) 74 %; Platelet Count 386 k/uL (150-450); RBC 4.93 m/uL (3.80-5.40); RDW 13.6 % (11.5-15.5); WBC 14.4 k/uL (3.8-10.6)
[2019-10-12 20:23] LABS: D-Dimer <0.17 mg/L FEU (<0.60)
[2019-10-12] MEDS ORDERED: CYCLOBENZAPRINE 10MG STARTER 3 TAB BTL PO STA (20:49)
[2019-10-12 21:16] VITALS: BP 136/90; PULSE 81; TEMP 97.9
== END 2019-10-12 21:16 | disposition home or self-care (01) ==
LOC: EC 17:30
DX: M54.6 Pain in thoracic spine (principal); R25.2 Cramp and spasm; J45.909 Unspecified asthma, uncomplicated; E11.9 Type 2 diabetes mellitus without complications; E78.5 Hyperlipidemia, unspecified; I10 Essential (primary) hypertension; E07.9 Disorder of thyroid, unspecified; Z79.51 Long term (current) use of inhaled steroids; Z79.84 Long term (current) use of oral hypoglycemic drugs; Z79.899 Other long term (current) drug therapy; Z79.890 Hormone replacement therapy; Z88.0 Allergy status to penicillin; Z88.8 Allergy status to other drugs, medicaments and biological substances; Z91.018 Allergy to other foods
CPT/HCPCS: 36415; 93005; 85379; 80053; 83690; 83735; 84484; 85025; 85610; 85730; 71046; 99284; 96374; 96375; J2270; J2405

== ENCOUNTER → 2021-02-24 | Outpatient (CLI) | payer OTHER | END | disposition home or self-care (01) | LOC: LABWHC1 11:43 | PROVIDERS: ATTEND Family Medicine | DX: Z20.822 Contact with and (suspected) exposure to COVID-19 (principal) | CPT/HCPCS: U0003; C9803 ==

== ENCOUNTER 2023-09-23 16:39 | Emergency (ER) | payer OTHER ==
--- NOTE | 2023-09-23 17:00 | ED ---
General Adult HPI - General Stated complaint: ankle injury Time Seen by Provider: 09/23/23 17:00 Source: patient - History of Present Illness Initial comments: 58-year-old female present with chief complaint of left ankle injury. Patient tripped over her shoe earlier today. She now has pain and swelling to the ankle with majority of the pain on the lateral side. Increased pain with weightbearing. No numbness or tingling. - Related Data Home Medications Medication Instructions Recorded Confirmed Cetirizine HCl [Zyrtec] 10 mg PO DAILY 12/21/14 08/13/18 Multivitamins, Thera [Theragran] 1 each PO DAILY 12/21/14 08/13/18 Simvastatin [Zocor] 40 mg PO HS 12/21/14 08/16/18 Triamterene-Hctz 37.5-25Mg 1 each PO BID 12/21/14 08/16/18 [Dyazide] traMADol HCl [Ultram] 50 mg PO Q4H PRN 12/21/14 08/16/18 Levothyroxine Sodium [Synthroid] 175 mcg PO DAILY 12/22/14 08/13/18 metFORMIN HCL [Glucophage] 500 mg PO BID 08/15/17 08/16/18 Albuterol Inhaler [Ventolin Hfa 1 - 2 puff INHALATION RT-Q6H PRN 08/13/18 08/13/18 Inhaler] Empagliflozin [Jardiance] 10 mg PO DAILY 08/13/18 08/13/18 sitaGLIPtin [Januvia] 25 mg PO DAILY 08/13/18 08/13/18 Previous Rx's Medication Instructions Recorded HYDROcodone/APAP 7.5-325MG [[place] 1 each PO Q6HR PRN #28 tab 08/16/18 7.5] Cyclobenzaprine [Flexeril] 10 mg PO TID #14 tab 10/12/19 Allergies Allergy/AdvReac Type Severity Reaction Status Date / Time Penicillins Allergy Severe Anaphylaxis Verified 09/23/23 17:33 FRESH FRUITS AND VEGETABLES Allergy Severe Anaphylaxis Uncoded 09/23/23 17:33 BETA BLOCKERS Allergy Anaphylaxis Uncoded 09/23/23 17:33 Review of Systems ROS Statement: Those systems with pertinent positive or pertinent negative responses have been documented in the HPI. ROS Other: All systems not noted in ROS Statement are negative. Past Medical History Past Medical History: Asthma, Diabetes Mellitus, Hyperlipidemia, Hypertension, Osteoarthritis (OA), Thyroid Disorder Additional Past Medical History / Comment(s): HX RIGHT BREAST MASS, HX ANEMIA, ASTHMA-COLD WEATHER & EXERCISE INDUCED (NO MEDS). BACK AND ARTHRITIS PAIN IN KNEES. Hx of graves disease, HAD RADIOACTIVE IODINE TX. VARICOSE VEINS. History of Any Multi-Drug Resistant Organisms: None Reported Past Surgical History: Tubal Ligation, Uterine Ablation Additional Past Surgical History / Comment(s): PARATHYROID RESECTION R/T TUMOR Past Anesthesia/Blood Transfusion Reactions: No Reported Reaction Past Psychological History: No Psychological Hx Reported Past Alcohol Use History: Rare Past Drug Use History: None Reported - Past Family History Mother Family Medical History: Cancer Additional Family Medical History / Comment(s): LUNG AND LIVER CANCER Daughter(s) Family Medical History: Cancer Additional Family Medical History / Comment(s): RHABDOMYOSARCOMA & HURTHLE CELL CANCER OF THYROID General Exam - General Exam Comments Initial Comments: Visual Physical Exam Vital signs reviewed General: Well-appearing, nontoxic, no acute distress. Head: Normocephalic, atraumatic Eyes: PERRLA, EOMI ENT: Airway patent Chest: Nonlabored breathing Skin: No visual rash, normal skin tone Neuro: Alert and oriented 3 Musculoskeletal: No gross abnormalities Limitations: no limitations General appearance: alert, in no apparent distress Head exam: Present: atraumatic, normocephalic Eye exam: Present: normal appearance, EOMI Neck exam: Present: normal inspection. Absent: meningismus Respiratory exam: Absent: respiratory distress Cardiovascular Exam: Present: regular rate Left Ankle exam: Present: tenderness, swelling, ecchymosis. Absent: full ROM Neurological exam: Present: alert, oriented X3 Psychiatric exam: Present: normal affect, normal mood Skin exam: Present: intact Course Vital Signs 09/23/23 09/23/23 17:30 19:09 Temperature 97.9 F 97.9 F Pulse Rate 61 66 Respiratory 20 18 Rate Blood Pressure 139/69 126/72 O2 Sat by Pulse 96 99 Oximetry Medical Decision Making - Medical Decision Making Was pt. sent in by a medical professional or institution (, PA, WEB DESIGNER DEVELOPER, urgent care, hospital, or jail...) When possible be specific @ -No Did you speak to anyone other than the patient for history (EMS, parent, family, police, friend...)? What history was obtained from this source @ -No Did you review nursing and triage notes (agree or disagree)? Why? @ -I reviewed and agree with nursing and triage notes Were old charts reviewed (outside hosp., previous admission, EMS record, old EKG, old radiological studies, urgent care reports/EKG's, jail records)? Report findings @ -No old charts were reviewed Differential Diagnosis (chest pain, altered mental status, abdominal pain women, abdominal pain men, vaginal bleeding, weakness, fever, dyspnea, syncope, headache, dizziness, GI bleed, back pain, seizure, CVA, palpatations, mental health, musculoskeletal)? @ -Differential includes fracture, dislocation, sprain, strain, this is not an all-inclusive list EKG interpreted by me (3pts min.). @ -As above X-rays interpreted by me (1pt min.). @ -X-ray shows no evidence of acute fracture. Subcutaneous swelling around the ankle likely secondary to underlying soft tissue injury. CT interpreted by me (1pt min.). @ -None done U/S interpreted by me (1pt. min.). @ -None done What testing was considered but not performed or refused? (CT, X-rays, U/S, labs)? Why? @ -None What meds were considered but not given or refused? Why? @ -None Did you discuss the management of the patient with other professionals (professionals i.e. , PA, WEB DESIGNER DEVELOPER, lab, RT, psych nurse, social secretary, assistant professor of art, teacher, commercial account officer, case work aide)? Give summary @ -No Was smoking cessation discussed for >3mins.? @ -No Was critical care preformed (if so, how long)? @ -No Were there social determinants of health that impacted care today? How? (Homelessness, low income, unemployed, alcoholism, drug addiction, transportation, low edu. Level, literacy, decrease access to med. care, retirement, rehab)? @ -No Was there de-escalation of care discussed even if they declined (Discuss DNR or withdrawal of care, Hospice)? DNR status @ -No What co-morbidities impacted this encounter? (DM, HTN, Smoking, COPD, CAD, Cancer, CVA, ARF, Chemo, Hep., AIDS, mental health diagnosis, sleep apnea, morbid obesity)? @ -None Was patient admitted / discharged? Hospital course, mention meds given and route, prescriptions, significant lab abnormalities, going to OR and other pertinent info. @ -58-year-old female presenting with chief complaint of left ankle injury. X- ray negative for fracture or dislocation. Patient educated on ankle sprain and supportive management. She has a cane and walker at home she will utilize as needed. Discharged. Follow-up with PCP. Report back to ER with any new or worsening symptoms. Discussed return parameters and answered all questions. Patient conveyed verbal understanding and agreed to the plan. I discussed this case in detail with my attending Dr. Cordoba Undiagnosed new problem with uncertain prognosis? @ -No Drug Therapy requiring intensive monitoring for toxicity (Heparin, Nitro, Insulin, Cardizem)? @ -No Were any procedures done? @ -No Diagnosis/symptom? @ -Ankle sprain Acute, or Chronic, or Acute on Chronic? @ -Acute Uncomplicated (without systemic symptoms) or Complicated (systemic symptoms)? @ -Uncomplicated Side effects of treatment? @ -No Exacerbation, Progression, or Severe Exacerbation? @ -No Poses a threat to life or bodily function? How? (Chest pain, [place], [place], pneumonia, PE, COPD, DKA, ARF, appy, cholecystitis, CVA, Diverticulitis, Homicidal, Suicidal, threat to staff... and all critical care pts) @ -No Disposition Clinical Impression: Ankle sprain Disposition: HOME SELF-CARE Condition: Good Instructions (If sedation given, give patient instructions): Ankle Sprain (ED) Additional Instructions: Follow-up with PCP. Report back to ER with any new or worsening symptoms. Rest, ice, compress, elevate. Take Motrin and Tylenol as needed Is patient prescribed a controlled substance at d/c from ED?: No Referrals: Wood Montez DO [Primary Care Provider] - 1-2 days Time of Disposition: 18:51
[2023-09-23 17:34] VITALS: TEMP 97.9
--- NOTE | 2023-09-23 18:14 | XR ---
EXAMINATION TYPE: XR ankle complete LT DATE OF EXAM: 09/23/2023 5:44 PM CLINICAL INDICATION:Female, 58 years old with history of L ankle swelling/injury; [facility] COMPARISON: None TECHNIQUE: XR ankle complete LT; ankle is imaged in frontal, lateral and oblique projections. FINDINGS: There is no evidence of acute osseous pathology. No evidence of subluxation or dislocation. Kager's fat pad is intact. Mild soft tissue swelling around the ankle. No radiopaque foreign bodies are ident ified. Calcaneal plantar spurring is present. Calcaneal Achilles enthesophyte. IMPRESSION: 1. No evidence of acute fracture. 2. Subcutaneous swelling around the ankle likely secondary to underlying soft tissue injury.
[2023-09-23 19:11] VITALS: BP 126/72; PULSE 66; RESP 18
== END 2023-09-23 19:00 | disposition home or self-care (01) ==
LOC: EC 16:39
DX: S93.402A Sprain of unspecified ligament of left ankle, initial encounter (principal); Z88.0 Allergy status to penicillin; Z88.8 Allergy status to other drugs, medicaments and biological substances; X58.XXXA Exposure to other specified factors, initial encounter
CPT/HCPCS: 99283

== ENCOUNTER 2024-03-16 13:13 | Emergency (ER) | payer OTHER ==
--- NOTE | 2024-03-16 14:10 | ED ---
Abdominal Pain HPI - General Source: patient, RN notes reviewed Mode of arrival: ambulatory Limitations: no limitations - History of Present Illness MD Complaint: abdominal pain, flank pain Onset/Timin -: days(s) <Saul Rizo - Last Filed: 03/16/24 14:08> <Nav Young - Last Filed: 03/27/24 20:13> - General Chief Complaint: Abdominal Pain Stated Complaint: Abd pain Time Seen by Provider: 03/16/24 13:28 - History of Present Illness Initial Comments: This is a 58-year-old female presenting with sudden onset right abdominal/flank pain (08/26) x 6 days. Patient states pain is constant and radiates to her right flank and back. Denies history of kidney or gallstones. Denies fever, chills, chest pain, dyspnea, N/V/D, constipation, melena, hematochezia, hematuria, urinary symptoms. (Saul Rizo) 58-year-old female presenting with chief complaint of abdominal pain. Patient i s having right upper quadrant pain. Mild nausea. She states that this pain is constant and radiates to her back. She denies any fever, chills, chest pain, difficulty breathing, vomiting, diarrhea, constipation, melena, hematochezia, urinary symptoms. (Nav Young) - Related Data Home Medications Medication Instructions Recorded Confirmed Cetirizine HCl [Zyrtec] 10 mg PO DAILY 12/21/14 08/13/18 Multivitamins, Thera [Theragran] 1 each PO DAILY 12/21/14 08/13/18 Simvastatin [Zocor] 40 mg PO HS 12/21/14 08/16/18 Triamterene-Hctz 37.5-25Mg 1 each PO BID 12/21/14 08/16/18 [Dyazide] traMADol HCl [Ultram] 50 mg PO Q4H PRN 12/21/14 08/16/18 Levothyroxine Sodium [Synthroid] 175 mcg PO DAILY 12/22/14 08/13/18 metFORMIN HCL [Glucophage] 500 mg PO BID 08/15/17 08/16/18 Albuterol Inhaler [Ventolin Hfa 1 - 2 puff INHALATION RT-Q6H PRN 08/13/18 08/13/18 Inhaler] Empagliflozin [Jardiance] 10 mg PO DAILY 08/13/18 08/13/18 sitaGLIPtin [Januvia] 25 mg PO DAILY 08/13/18 08/13/18 Previous Rx's Medication Instructions Recorded HYDROcodone/APAP 7.5-325MG [[place] 1 each PO Q6HR PRN #28 tab 08/16/18 7.5] Cyclobenzaprine [Flexeril] 10 mg PO TID #14 tab 10/12/19 Allergies Allergy/AdvReac Type Severity Reaction Status Date / Time Penicillins Allergy Severe Anaphylaxis Verified 03/16/24 13:33 FRESH FRUITS AND VEGETABLES Allergy Severe Anaphylaxis Uncoded 03/16/24 13:33 BETA BLOCKERS Allergy Anaphylaxis Uncoded 03/16/24 13:33 Review of Systems ROS Other: All systems not noted in ROS Statement are negative. <Saul Rizo - Last Filed: 03/16/24 14:08> ROS Other: All systems not noted in ROS Statement are negative. <Nav Young - Last Filed: 03/27/24 20:13> ROS Statement: Those systems with pertinent positive or pertinent negative responses have been documented in the HPI. Past Medical History Past Medical History: Asthma, Diabetes Mellitus, Hyperlipidemia, Hypertension, Osteoarthritis (OA), Thyroid Disorder Additional Past Medical History / Comment(s): HX RIGHT BREAST MASS, HX ANEMIA, ASTHMA-COLD WEATHER & EXERCISE INDUCED (NO MEDS). BACK AND ARTHRITIS PAIN IN KNEES. Hx of graves disease, HAD RADIOACTIVE IODINE TX. VARICOSE VEINS. History of Any Multi-Drug Resistant Organisms: None Reported Past Surgical History: Tubal Ligation, Uterine Ablation Additional Past Surgical History / Comment(s): PARATHYROID RESECTION R/T TUMOR Past Anesthesia/Blood Transfusion Reactions: No Reported Reaction Past Psychological History: No Psychological Hx Reported Smoking Status: Never smoker Past Alcohol Use History: Rare Past Drug Use History: None Reported - Past Family History Mother Family Medical History: Cancer Additional Family Medical History / Comment(s): LUNG AND LIVER CANCER Daughter(s) Family Medical History: Cancer Additional Family Medical History / Comment(s): RHABDOMYOSARCOMA & HURTHLE CELL CANCER OF THYROID <Saul Rizo - Last Filed: 03/16/24 14:08> General Exam Limitations: no limitations <Saul Rizo - Last Filed: 03/16/24 14:08> Limitations: no limitations General appearance: alert, in no apparent distress Head exam: Present: atraumatic, normocephalic, normal inspection Eye exam: Present: normal appearance, EOMI Neck exam: Present: normal inspection. Absent: meningismus Respiratory exam: Present: normal lung sounds bilaterally. Absent: respiratory distress, wheezes, rales, rhonchi, stridor Cardiovascular Exam: Present: regular rate, normal rhythm, normal heart sounds. Absent: systolic murmur, diastolic murmur, rubs, gallop, clicks GI/Abdominal exam: Present: soft, tenderness. Absent: distended, guarding, rebound, rigid Neurological exam: Present: alert, oriented X3 Psychiatric exam: Present: normal affect, normal mood Skin exam: Present: warm, dry <Nav Young - Last Filed: 03/27/24 20:13> - General Exam Comments Initial Comments: Visual Physical Exam Vital signs reviewed General: Well-appearing, nontoxic, no acute distress. Head: Normocephalic, atraumatic Eyes: PERRLA, EOMI ENT: Airway patent Chest: Nonlabored breathing Skin: No visual rash, normal skin tone Neuro: Alert and oriented 3 Musculoskeletal: No gross abnormalities (Saul Rizo) Course Vital Signs 03/16/24 03/16/24 03/16/24 13:31 18:05 23:20 Temperature 98.2 F 98.9 F 98.7 F Pulse Rate 74 64 61 Respiratory 20 18 18 Rate Blood Pressure 112/59 155/85 136/89 O2 Sat by Pulse 96 95 95 Oximetry Medical Decision Making <Saul Rizo - Last Filed: 03/16/24 14:08> - Lab Data Result diagrams: 03/16/24 14:51 03/16/24 14:51 <Nav Young - Last Filed: 03/27/24 20:13> - Medical Decision Making I completed the quick note portion of this chart signed SEAN Virgen (Saul Rizo) EKG shows sinus rhythm with first-degree AV block. Ventricular rate 68. PA interval 213. QRS 91. QT 385. QTc 402. Was pt. sent in by a medical professional or institution (YUE Torrez, REGULATORY COORDINATOR, urgent care, hospital, or alf...) When possible be specific @ -No Did you speak to anyone other than the patient for history (EMS, parent, family, police, friend...)? What history was obtained from this source @ -No Did you review nursing and triage notes (agree or disagree)? Why? @ -I reviewed and agree with nursing and triage notes Were old charts reviewed (outside hosp., previous admission, EMS record, old EKG, old radiological studies, urgent care reports/EKG's, alf records)? Report findings @ -No old charts were reviewed Differential Diagnosis (chest pain, altered mental status, abdominal pain women, abdominal pain men, vaginal bleeding, weakness, fever, dyspnea, syncope, headache, dizziness, GI bleed, back pain, seizure, CVA, palpatations, mental health, musculoskeletal)? @ -MDM Differential Abdominal Pain Women: Appendicitis, Cholecystitis, diverticulosis, ischemic bowel, pancreatitis, hepatitis, UTI, gastroenteritis, AAA, incarcerated hernia, bowel obstruction, constipation, inflammatory bowel, hepatitis, peptic ulcer disease, splenic infarction, perforated viscus, vulvitis, ovarian torsion, PID, kidney stone, placenta abruption... This is not meant to be an all-inclusive list EKG interpreted by me (3pts min.). @ -EKG shows sinus rhythm with first-degree AV block. Ventricular rate 68. PA interval 213. QRS 91. QT 385. QTc 402. X-rays interpreted by me (1pt min.). @ -Chest x-ray shows no acute cardiopulmonary disease/process CT interpreted by me (1pt min.). @ -CT shows gallbladder and pancreas within normal limits. No evidence for aortic dissection. No evidence for acute process to explain the patient's pain U/S interpreted by me (1pt. min.). @ -Ultrasound shows no evidence for acute process What testing was considered but not performed or refused? (CT, X-rays, U/S, labs)? Why? @ -None What meds were considered but not given or refused? Why? @ -None Did you discuss the management of the patient with other professionals (professionals i.e. , PA, REGULATORY COORDINATOR, lab, RT, psych nurse, social services manager, video game script writer, teacher, cash management officer, case reviewer)? Give summary @ -No Was smoking cessation discussed for >3mins.? @ -No Was critical care preformed (if so, how long)? @ -No Were there social determinants of health that impacted care today? How? (Homelessness, low income, unemployed, alcoholism, drug addiction, transportation, low edu. Level, literacy, decrease access to med. care, custodial, rehab)? @ -No Was there de-escalation of care discussed even if they declined (Discuss DNR or withdrawal of care, Hospice)? DNR status @ -No What co-morbidities impacted this encounter? (DM, HTN, Smoking, COPD, CAD, Ca ncer, CVA, ARF, Chemo, Hep., AIDS, mental health diagnosis, sleep apnea, morbid obesity)? @ -None Was patient admitted / discharged? Hospital course, mention meds given and route, prescriptions, significant lab abnormalities, going to OR and other pertinent info. @ -58-year-old female presenting with chief complaint of right upper quadrant pain. Workup is initiated by triage. Patient is later placed in a hallway bed and examined by myself. No leukocytosis. Hemoglobin 16.1. Mild transaminitis AST 43 ALT 44. Negative troponin x 2. Amylase and lipase are WNL. No acute process seen on chest x-ray, CT of the abdomen and pelvis, or right upper quadrant ultrasound. Patient reports that pain is improved and she is very eager for discharge home. She is educated on today's findings. Follow-up with PCP. Report back to ER with any new or worsening symptoms. Discussed return parameters and answered all questions. Patient conveyed verbal understanding and agreed to the plan. I discussed this case in detail with my attending Dr. Cordoba Undiagnosed new problem with uncertain prognosis? @ -No Drug Therapy requiring intensive monitoring for toxicity (Heparin, Nitro, Insulin, Cardizem)? @ -No Were any procedures done? @ -No Diagnosis/symptom? @ -Abdominal pain Acute, or Chronic, or Acute on Chronic? @ -Acute Uncomplicated (without systemic symptoms) or Complicated (systemic symptoms)? @ -Uncomplicated Side effects of treatment? @ -No Exacerbation, Progression, or Severe Exacerbation? @ -No Poses a threat to life or bodily function? How? (Chest pain, [place], [place], pneumonia, PE, COPD, DKA, ARF, appy, cholecystitis, CVA, Diverticulitis, Homicidal, Suicidal, threat to staff... and all critical care pts) @ -Low likelihood (Claudio Younge) - Lab Data Lab Results 03/16/24 03/16/24 03/16/24 Range/Units 14:51 14:51 14:51 WBC 9.2 (3.8-10.6) k/uL RBC 4.80 (3.80-5.40) m/uL Hgb 16.1 H (11.4-16.0) gm/dL Hct 46.6 H (34.0-46.0) % MCV 97.0 (80.0-100.0) fL MCH 33.6 (25.0-35.0) pg MCHC 34.6 (31.0-37.0) g/dL RDW 13.3 (11.5-15.5) % Plt Count 306 (150-450) k/uL MPV 8.1 Neutrophils % 67 % Lymphocytes % 25 % Monocytes % 4 % Eosinophils % 2 % Basophils % 1 % Neutrophils # 6.2 (1.3-7.7) k/uL Lymphocytes # 2.3 (1.0-4.8) k/uL Monocytes # 0.4 (0-1.0) k/uL Eosinophils # 0.2 (0-0.7) k/uL Basophils # 0.1 (0-0.2) k/uL PT 12.2 (10.0-12.5) sec INR 1.1 (<1.2) APTT 27.8 (22.0-30.0) sec Sodium 139 (137-145) mmol/L Potassium 3.9 (3.5-5.1) mmol/L Chloride 90 L (98-107) mmol/L Carbon Dioxide 36 H (22-30) mmol/L Anion Gap 13 mmol/L BUN 35 H (7-17) mg/dL Creatinine 0.94 (0.52-1.04) mg/dL Est GFR (CKD-EPI)AfAm 77 (>60 ml/min/1.73 sqM) Est GFR (CKD-EPI)NonAf 67 (>60 ml/min/1.73 sqM) Glucose 188 H (74-99) mg/dL Plasma Lactic Acid Saw (0.7-2.0) mmol/L Calcium 11.0 H (8.4-10.2) mg/dL Total Bilirubin 1.0 (0.2-1.3) mg/dL AST 43 H (14-36) U/L ALT 44 H (4-34) U/L Alkaline Phosphatase 102 (38-126) U/L Troponin I (0.000-0.034) ng/mL Total Protein 10.0 H (6.3-8.2) g/dL Albumin 5.6 H (3.5-5.0) g/dL Amylase 85 (30-110) U/L Lipase 112 (23-300) U/L 03/16/24 03/16/24 03/16/24 Range/Units 14:51 14:51 22:08 WBC (3.8-10.6) k/uL RBC (3.80-5.40) m/uL Hgb (11.4-16.0) gm/dL Hct (34.0-46.0) % MCV (80.0-100.0) fL MCH (25.0-35.0) pg MCHC (31.0-37.0) g/dL RDW (11.5-15.5) % Plt Count (150-450) k/uL MPV Neutrophils % % Lymphocytes % % Monocytes % % Eosinophils % % Basophils % % Neutrophils # (1.3-7.7) k/uL Lymphocytes # (1.0-4.8) k/uL Monocytes # (0-1.0) k/uL Eosinophils # (0-0.7) k/uL Basophils # (0-0.2) k/uL PT (10.0-12.5) sec INR (<1.2) APTT (22.0-30.0) sec Sodium (137-145) mmol/L Potassium (3.5-5.1) mmol/L Chloride (98-107) mmol/L Carbon Dioxide (22-30) mmol/L Anion Gap mmol/L BUN (7-17) mg/dL Creatinine (0.52-1.04) mg/dL Est GFR (CKD-EPI)AfAm (>60 ml/min/1.73 sqM) Est GFR (CKD-EPI)NonAf (>60 ml/min/1.73 sqM) Glucose (74-99) mg/dL Plasma Lactic Acid Saw 1.7 (0.7-2.0) mmol/L Calcium (8.4-10.2) mg/dL Total Bilirubin (0.2-1.3) mg/dL AST (14-36) U/L ALT (4-34) U/L Alkaline Phosphatase (38-126) U/L Troponin I 0.019 <0.012 (0.000-0.034) ng/mL Total Protein (6.3-8.2) g/dL Albumin (3.5-5.0) g/dL Amylase (30-110) U/L Lipase (23-300) U/L Disposition <Saul Rizo - Last Filed: 03/16/24 14:08> Is patient prescribed a controlled substance at d/c from ED?: No Time of Disposition: 23:08 <Nav Young - Last Filed: 03/27/24 20:13> Clinical Impression: Abdominal pain Disposition: HOME SELF-CARE Condition: Good Instructions (If sedation given, give patient instructions): Abdominal Pain (ED) Additional Instructions: Follow-up with PCP. Report back to ER with any new or worsening symptoms. Referrals: Wood Montez DO [Primary Care Provider] - 1-2 days
--- NOTE | 2024-03-16 14:58 | XR ---
EXAMINATION TYPE: XR chest 2V DATE OF EXAM: 03/16/2024 2:20 PM COMPARISON: Chest radiographs from 10/12/2019 CLINICAL INDICATION: Female, 58 years old with history of abdominal pain; TECHNIQUE: XR chest 2V Frontal and lateral views of the chest. FINDINGS: Lungs/Pleura: There is no evidence of pleural effusion, focal consolidation, or pneumothorax. Pulmonary vascularity: Unremarkable. Heart/mediastinum: Cardiomediastinal silhouette is unremarkable. Musculoskeletal: No acute osseous pathology. IMPRESSION: No acute cardiopulmonary disease/process. [facility], , 03/16/2024 2:56 PM
[2024-03-16 16:28] LABS: Basophils # (A) 0.1 k/uL (0-0.2); Basophils % (A) 1 %; Eosinophils # (A) 0.2 k/uL (0-0.7); Eosinophils % (A) 2 %; HCT 46.6 % (34.0-46.0); HGB 16.1 gm/dL (11.4-16.0); Lymphocytes # (A) 2.3 k/uL (1.0-4.8); Lymphocytes % (A) 25 %; MCH 33.6 pg (25.0-35.0); MCHC 34.6 g/dL (31.0-37.0); Mean Platelet Volume 8.1; Monocytes # (A) 0.4 k/uL (0-1.0); Monocytes % (A) 4 %; Neutrophils # (A) 6.2 k/uL (1.3-7.7); Neutrophils % (A) 67 %; Platelet Count 306 k/uL (150-450); RDW 13.3 % (11.5-15.5); WBC 9.2 k/uL (3.8-10.6)
[2024-03-16 16:29] LABS: ALT 44 U/L (4-34); African American GFR (CKD) 77 (>60 ml/min/1.73 sqM); Amylase 85 U/L (30-110); Anion Gap 13 mmol/L; Blood Urea Nitrogen 35 mg/dL (7-17); Carbon Dioxide 36 mmol/L (22-30); Chloride 90 mmol/L (98-107); Glucose 188 mg/dL (74-99); Lipase 112 U/L (23-300); Non-African American GFR(CKD) 67 (>60 ml/min/1.73 sqM); Sodium 139 mmol/L (137-145)
[2024-03-16 16:55] LABS: AST 43 U/L (14-36); Albumin 5.6 g/dL (3.5-5.0); Alkaline Phosphatase 102 U/L (38-126); Potassium 3.9 mmol/L (3.5-5.1)
[2024-03-16 17:05] LABS: INR 1.1 (<1.2); Partial Thromboplastin Time 27.8 sec (22.0-30.0); Prothrombin Time 12.2 sec (10.0-12.5)
[2024-03-16] MEDS: SODIUM CHLORIDE 0.9% 1,000 ML IV STA (18:43)
--- NOTE | 2024-03-16 19:24 | CT ---
EXAMINATION TYPE: CT abdomen pelvis w con DATE OF EXAM: 03/16/2024 7:10 PM COMPARISON: 05/08/2013 CLINICAL INDICATION: Female, 58 years old with history of abdominal pain; RUQ pain running straight t hrough into back x few days. TECHNIQUE: Axial CT abdomen pelvis w con;Sagittal and coronal reformats were created on a separate w orkstation. Contrast used:100cc mL of Isovue 300 with IV Contrast, (none if empty) Oral contrast used: without Oral Contrast (none if empty) CT DLP: 1372.4 mGycm, Automated exposure control for dose reduction was used. FINDINGS: LOWER CHEST: Unremarkable ABDOMEN LIVER: Unremarkable GALLBLADDER AND BILE DUCTS: No ductal dilation or evidence for cholelithiasis. PANCREAS: Unremarkable. SPLEEN: Small splenule is present. ADRENAL GLANDS: Unremarkable. KIDNEYS AND URETERS: No evidence of hydronephrosis or renal calculus. The ureters are unremarkable. PELVIS BLADDER: No evidence for wall thickening or mass given limitations of exam. REPRODUCTIVE: Unremarkable. ABDOMEN & PELVIS STOMACH AND BOWEL: No evidence of bowel obstruction. The appendix is normal. There is redundant sigmo id colon PERITONEUM/RETROPERITONEUM: No evidence of pneumoperitoneum or free fluid. VASCULATURE: No evidence of aortic aneurysm. MUSCULOSKELETAL: No acute osseous abnormalities LYMPH NODES: No gross evidence for lymphadenopathy. SOFT TISSUE/ABDOMINAL WALL: Unremarkable IMPRESSION: 1. And pancreas are within normal limits. No evidence for aortic dissection. Evidence for acute process. The gallbladder [facility], , 03/16/2024 7:21 PM
[2024-03-16] MEDS: MAG HYDROX/AL HYDROX/SIMETH 30 ML, HYOSCYAMINE ELIXIR 10 ML, LIDOCAINE VISCOUS 2% 10 ML PO STA (19:52)
[2024-03-16] MEDS: FAMOTIDINE 20 MG/2 ML VIAL IV STA (19:52)
[2024-03-16 20:08] VITALS: RESP 18
--- NOTE | 2024-03-16 21:24 | US ---
EXAMINATION TYPE: US abdomen limited DATE OF EXAM: 03/16/2024 COMPARISON: CT same day CLINICAL INDICATION: Female, 58 years old with history of RUQ pain; RUQ pain for 5 days TECHNIQUE: Grayscale and color Doppler imaging of the right upper quadrant was performed. FINDINGS: EXAM MEASUREMENTS: Liver Length: 21.6 cm Gallbladder Wall: 0.3 cm CBD: 0.5 cm Right Kidney: 11.4 x 5.4 x 4.5 cm Pancreas: Tail obscured by overlying bowel gas Liver: enlarged, heterogeneous Gallbladder: no evidence of stones Evidence for sonographic Watts's sign: no CBD: appears wnl Right Kidney: no evidence of hydronephrosis IMPRESSION: No evidence for acute process. [facility], , 03/16/2024 9:22 PM
[2024-03-16 23:22] VITALS: BP 136/89; PULSE 61; TEMP 98.7
== END 2024-03-16 23:22 | disposition home or self-care (01) ==
LOC: EC 13:13
DX: R10.11 Right upper quadrant pain (principal); Z88.0 Allergy status to penicillin; Z91.018 Allergy to other foods; Z88.8 Allergy status to other drugs, medicaments and biological substances
CPT/HCPCS: 36415; 93005; 80053; 82150; 83605; 83690; 84484; 85025; 85610; 85730; 71046; 76705; 74177; 99285; 96374; 96361; J3490; Q9967

== ENCOUNTER → 2024-04-02 | Outpatient (CLI) | payer OTHER ==
--- NOTE | 2024-04-02 09:32 | NM ---
EXAMINATION TYPE: NM hepatobiliary w EF DATE OF EXAM: 04/02/2024 9:01 AM COMPARISON: Ultrasound most recent 03/16/2024 CT abdomen pelvis most recent from 03/16/2024 . CLINICAL INDICATION:Female, 58 years old with history of R10.11 RUQ PAIN; TECHNIQUE: The patient was given 4.3 mCi of Technetium 99m-Mebrofenin as a radiotracer and multiple scintigraphic images were obtained of the abdomen. Gallbladder function was also assessed after the a dministration of ensure drink and additional scintigraphic images were obtained of the abdomen. A reg ion of interest was drawn over the gallbladder and a timing activity curve was generated. The gallbla dder ejection fraction was calculated. FINDINGS: Normal uptake of radiotracer was identified within the liver with excretion into the hepatic and comm on biliary ducts within 8 min. There was normal progressive washout of the liver over the course of t he study. Radiotracer uptake within the gallbladder at 8 minutes as well as small bowel activity was identified at 12 minutes. Maximum calculated gallbladder ejection fraction is: 70% at 30 minutes (Normal gallbladder ejection fraction is > 35%) IMPRESSION: 1. Normal hepatobiliary scan. 2. Normal ejection fraction. [facility], , 04/02/2024 9:30 AM
== END | disposition home or self-care (01) ==
LOC: RADNMMAIN 06:50
PROVIDERS: ATTEND Family Medicine
DX: R10.11 Right upper quadrant pain (principal)
CPT/HCPCS: 78226; A9537

== ENCOUNTER 2024-04-03 03:52 | Emergency (ER) | payer OTHER ==
--- NOTE | 2024-04-03 05:50 | ED ---
Nausea/Vomiting/Diarrhea HPI - General Chief complaint: Back Pain/Injury Stated complaint: back pain Time Seen by Provider: 04/03/24 03:56 Source: patient, RN notes reviewed, old records reviewed Mode of arrival: ambulatory Limitations: no limitations - History of Present Illness Initial comments: This is a 58-year-old female to the ER for evaluation today. Patient presents today for evaluation of nausea vomiting abdominal pain back pain and in general not feeling well patient has been not feeling well for 3 weeks to 4 weeks and started Mounjaro 4 weeks ago multiple evaluations including ER visits and primary care visits without acute findings MD complaint: nausea, vomiting -: days(s) Description of Diarrhea: water Associated Abdominal Pain: Yes Location: diffuse Radiation: none Severity: moderate Severity scale (1-10): 7 Quality: cramping, stabbing, aching Consistency: constant Improves with: none Associated Symptoms: denies other symptoms - Related Data Home Medications Medication Instructions Recorded Confirmed Cetirizine HCl [Zyrtec] 10 mg PO DAILY 12/21/14 08/13/18 Multivitamins, Thera [Theragran] 1 each PO DAILY 12/21/14 08/13/18 Simvastatin [Zocor] 40 mg PO HS 12/21/14 08/16/18 Triamterene-Hctz 37.5-25Mg 1 each PO BID 12/21/14 08/16/18 [Dyazide] traMADol HCl [Ultram] 50 mg PO Q4H PRN 12/21/14 08/16/18 Levothyroxine Sodium [Synthroid] 175 mcg PO DAILY 12/22/14 08/13/18 metFORMIN HCL [Glucophage] 500 mg PO BID 08/15/17 08/16/18 Albuterol Inhaler [Ventolin Hfa 1 - 2 puff INHALATION RT-Q6H PRN 08/13/18 08/13/18 Inhaler] Empagliflozin [Jardiance] 10 mg PO DAILY 08/13/18 08/13/18 sitaGLIPtin [Januvia] 25 mg PO DAILY 08/13/18 08/13/18 Previous Rx's Medication Instructions Recorded HYDROcodone/APAP 7.5-325MG [[place] 1 each PO Q6HR PRN #28 tab 08/16/18 7.5] Cyclobenzaprine [Flexeril] 10 mg PO TID #14 tab 10/12/19 Allergies Allergy/AdvReac Type Severity Reaction Status Date / Time Penicillins Allergy Severe Anaphylaxis Verified 04/08/24 17:16 FRESH FRUITS AND VEGETABLES Allergy Severe Anaphylaxis Uncoded 04/08/24 17:16 BETA BLOCKERS Allergy Anaphylaxis Uncoded 04/08/24 17:16 IV contrast Allergy Unknown Uncoded 04/08/24 17:17 munjero Allergy Unknown Uncoded 04/08/24 17:17 Review of Systems ROS Statement: Those systems with pertinent positive or pertinent negative responses have been documented in the HPI. ROS Other: All systems not noted in ROS Statement are negative. Past Medical History Past Medical History: Asthma, Diabetes Mellitus, Hyperlipidemia, Hypertension, Osteoarthritis (OA), Thyroid Disorder Additional Past Medical History / Comment(s): HX RIGHT BREAST MASS, HX ANEMIA, ASTHMA-COLD WEATHER & EXERCISE INDUCED (NO MEDS). BACK AND ARTHRITIS PAIN IN KNEES. Hx of graves disease, HAD RADIOACTIVE IODINE TX. VARICOSE VEINS. History of Any Multi-Drug Resistant Organisms: None Reported Past Surgical History: Tubal Ligation, Uterine Ablation Additional Past Surgical History / Comment(s): PARATHYROID RESECTION R/T TUMOR Past Anesthesia/Blood Transfusion Reactions: No Reported Reaction Past Psychological History: No Psychological Hx Reported Smoking Status: Never smoker Past Alcohol Use History: Rare Past Drug Use History: None Reported - Past Family History Mother Family Medical History: Cancer Additional Family Medical History / Comment(s): LUNG AND LIVER CANCER Daughter(s) Family Medical History: Cancer Additional Family Medical History / Comment(s): RHABDOMYOSARCOMA & HURTHLE CELL CANCER OF THYROID General Exam Limitations: no limitations General appearance: alert, in no apparent distress Head exam: Present: atraumatic, normocephalic, normal inspection Eye exam: Present: normal appearance, PERRL, EOMI. Absent: scleral icterus, conjunctival injection, periorbital swelling ENT exam: Present: normal exam, mucous membranes moist Neck exam: Present: normal inspection. Absent: tenderness, meningismus, l ymphadenopathy Respiratory exam: Present: normal lung sounds bilaterally. Absent: respiratory distress, wheezes, rales, rhonchi, stridor Cardiovascular Exam: Present: regular rate, normal rhythm, normal heart sounds. Absent: systolic murmur, diastolic murmur, rubs, gallop, clicks GI/Abdominal exam: Present: soft, normal bowel sounds. Absent: distended, tenderness, guarding, rebound, rigid Extremities exam: Present: normal inspection, full ROM, normal capillary refill. Absent: tenderness, pedal edema, joint swelling, calf tenderness Back exam: Present: normal inspection Neurological exam: Present: alert, oriented X3, CN II-XII intact Psychiatric exam: Present: normal affect, normal mood Skin exam: Present: warm, dry, intact, normal color. Absent: rash Course Vital Signs 04/03/24 04/03/24 04/03/24 04:17 06:00 07:10 Temperature 98.0 F 98.2 F Pulse Rate 80 68 71 Respiratory 18 18 16 Rate Blood Pressure 126/66 130/91 139/75 O2 Sat by Pulse 96 99 97 Oximetry - Reevaluation(s) Reevaluation #1: 04/03/24 05:49 Records reviewed Reevaluation #2: Patient symptoms improved throughout ER stay Reevaluation #3: Patient informed of results questions answered Reevaluation #4: Was pt. sent in by a medical professional or institution (, PA, DEBT COUNSELOR, urgent care, hospital, or snf...) When possible be specific @ -no Did you speak to anyone other than the patient for history (EMS, parent, family, police, friend...)? What history was obtained from this source @ -no Did you review nursing and triage notes (agree or disagree)? Why? @ -agree Are old charts reviewed (outside hosp., previous admission, EMS record, old EKG, old radiological studies, urgent care reports/EKG's, snf records)? Report findings @ -yes Differential Diagnosis (chest pain, altered mental status, abdominal pain women, abdominal pain men, vaginal bleeding, weakness, fever, dyspnea, syncope, headache, dizziness, GI bleed, back pain, seizure, CVA, palpatations, mental health, musculoskeletal)? @ -prior EKG interpreted by me (3pts min.). @ -no X-rays interpreted by me (1pt min.). @ -no CT interpreted by me (1pt min.). @ -no U/S interpreted by me (1pt. min.). @ -no What testing was considered but not performed or refused? (CT, X-rays, U/S, labs)? Why? @ -none What meds were considered but not given or refused? Why? @ -none Did you discuss the management of the patient with other professionals (professionals i.e. , PA, DEBT COUNSELOR, lab, RT, psych nurse, social media designer, vice president quality improvement, teacher, property and supply officer, case management associate)? Give summary @ -no Was smoking cessation discussed for >3mins.? @ -no Was critical care preformed (if so, how long)? @ -no Were there social determinants of health that impacted care today? How? (Homelessness, low income, unemployed, alcoholism, drug addiction, transportatio n, low edu. Level, literacy, decrease access to med. care, assisted, rehab)? @ -none Was there de-escalation of care discussed even if they declined (Discuss DNR or withdrawal of care, Hospice)? DNR status @ -no What co-morbidities impacted this encounter? (DM, HTN, Smoking, COPD, CAD, Cancer, CVA, ARF, Chemo, Hep., AIDS, mental health diagnosis, sleep apnea, morbid obesity)? @ -none Was patient admitted / discharged? Hospital course, mention meds given and route, prescriptions, significant lab abnormalities, going to OR and other pertinent info. @ - 58 female to the ER for evaluation she presents today for what I suspect to be weight loss drug side effect. Generalized body aches pains back pains etc. patient feels improved here in the ER and can be discharged home Discharge Undiagnosed new problem with uncertain prognosis? @ -no Drug Therapy requiring intensive monitoring for toxicity (Heparin, Nitro, Insulin, Cardizem)? @ -no Were any procedures done? @ -no Diagnosis/symptom? @ -Medication side effect Acute, or Chronic, or Acute on Chronic? @ -Acute Uncomplicated (without systemic symptoms) or Complicated (systemic symptoms)? @ -Complicated Side effects of treatment? @ -no Exacerbation, Progression, or Severe Exacerbation? @ -exacerbation Poses a threat to life or bodily function? How? (Chest pain, [place], [place], pneumonia, PE, COPD, DKA, ARF, appy, cholecystitis, CVA, Diverticulitis, Homicidal, Suicidal, threat to staff... and all critical care pts) @ -no Medical Decision Making - Medical Decision Making 58 female to the ER for evaluation she presents today for what I suspect to be weight loss drug side effect. Generalized body aches pains back pains etc. patient feels improved here in the ER and can be discharged home - Lab Data Result diagrams: 04/03/24 06:04 04/03/24 06:04 Lab Results 04/03/24 04/03/24 Range/Units 06:04 06:04 WBC 10.2 (3.8-10.6) k/uL RBC 4.36 (3.80-5.40) m/uL Hgb 14.6 (11.4-16.0) gm/dL Hct 42.9 (34.0-46.0) % MCV 98.3 (80.0-100.0) fL MCH 33.4 (25.0-35.0) pg MCHC 34.0 (31.0-37.0) g/dL RDW 12.9 (11.5-15.5) % Plt Count 304 (150-450) k/uL MPV 7.6 Neutrophils % 75 % Lymphocytes % 18 % Monocytes % 4 % Eosinophils % 1 % Basophils % 1 % Neutrophils # 7.6 (1.3-7.7) k/uL Lymphocytes # 1.8 (1.0-4.8) k/uL Monocytes # 0.4 (0-1.0) k/uL Eosinophils # 0.1 (0-0.7) k/uL Basophils # 0.1 (0-0.2) k/uL Sodium 136 L (137-145) mmol/L Potassium 3.7 (3.5-5.1) mmol/L Chloride 93 L (98-107) mmol/L Carbon Dioxide 37 H (22-30) mmol/L Anion Gap 6 mmol/L BUN 19 H (7-17) mg/dL Creatinine 0.74 (0.52-1.04) mg/dL Est GFR (CKD-EPI)AfAm >90 (>60 ml/min/1.73 sqM) Est GFR (CKD-EPI)NonAf 90 (>60 ml/min/1.73 sqM) Glucose 166 H (74-99) mg/dL Calcium 10.1 (8.4-10.2) mg/dL Phosphorus 2.9 (2.5-4.5) mg/dL Magnesium 2.1 (1.6-2.3) mg/dL Total Bilirubin 0.8 (0.2-1.3) mg/dL AST 35 (14-36) U/L ALT 43 H (4-34) U/L Alkaline Phosphatase 106 (38-126) U/L Total Protein 8.2 (6.3-8.2) g/dL Albumin 4.7 (3.5-5.0) g/dL Disposition Clinical Impression: Abdominal pain, Mid back pain, Thoracic back pain, Medication side effect Disposition: HOME SELF-CARE Condition: Fair Instructions (If sedation given, give patient instructions): Abdominal Pain (ED) Is patient prescribed a controlled substance at d/c from ED?: No Referrals: Wood Montez DO [Primary Care Provider] - 1-2 days
[2024-04-03] MEDS: ONDANSETRON 4 MG/2 ML VIAL IVP STA (05:57)
[2024-04-03] MEDS: KETOROLAC 15 MG/ML 1 ML VIAL IVP STA (06:00)
[2024-04-03] MEDS: MORPHINE SULFATE 4 MG/ML SYRINGE IV STA (06:01)
[2024-04-03] MEDS: SODIUM CHLORIDE 0.9% 1,000 ML IV STA (06:02)
[2024-04-03] MEDS: SENNOSIDES-DOCUSATE SODIUM 1 EACH TAB PO STA (06:02)
[2024-04-03 06:20] LABS: Basophils # (A) 0.1 k/uL (0-0.2); Basophils % (A) 1 %; Eosinophils # (A) 0.1 k/uL (0-0.7); Eosinophils % (A) 1 %; HCT 42.9 % (34.0-46.0); HGB 14.6 gm/dL (11.4-16.0); Lymphocytes # (A) 1.8 k/uL (1.0-4.8); Lymphocytes % (A) 18 %; MCH 33.4 pg (25.0-35.0); MCV 98.3 fL (80.0-100.0); Mean Platelet Volume 7.6; Monocytes # (A) 0.4 k/uL (0-1.0); Monocytes % (A) 4 %; Neutrophils # (A) 7.6 k/uL (1.3-7.7); Neutrophils % (A) 75 %; Platelet Count 304 k/uL (150-450); RBC 4.36 m/uL (3.80-5.40); RDW 12.9 % (11.5-15.5); WBC 10.2 k/uL (3.8-10.6)
[2024-04-03 06:58] LABS: ALT 43 U/L (4-34); AST 35 U/L (14-36); African American GFR (CKD) >90 (>60 ml/min/1.73 sqM); Albumin 4.7 g/dL (3.5-5.0); Alkaline Phosphatase 106 U/L (38-126); Anion Gap 6 mmol/L; Blood Urea Nitrogen 19 mg/dL (7-17); Calcium 10.1 mg/dL (8.4-10.2); Carbon Dioxide 37 mmol/L (22-30); Chloride 93 mmol/L (98-107); Glucose 166 mg/dL (74-99); Magnesium 2.1 mg/dL (1.6-2.3); Non-African American GFR(CKD) 90 (>60 ml/min/1.73 sqM); Phosphorus 2.9 mg/dL (2.5-4.5); Potassium 3.7 mmol/L (3.5-5.1); Sodium 136 mmol/L (137-145); Total Bilirubin 0.8 mg/dL (0.2-1.3); Total Protein 8.2 g/dL (6.3-8.2)
[2024-04-03] MEDS: ONDANSETRON 4 MG ODT STARTER PACK 2 TAB BTL PO STA (07:09)
[2024-04-03] MEDS: ACET/COD 300 MG/30 MG STARTER PACK 6 TAB BTL PO STA (07:09)
[2024-04-03 07:13] VITALS: BP 139/75; PULSE 71; RESP 16; TEMP 98.2
== END 2024-04-03 07:16 | disposition home or self-care (01) ==
LOC: EC 03:52
DX: M54.6 Pain in thoracic spine (principal); R10.84 Generalized abdominal pain; T50.995A Adverse effect of other drugs, medicaments and biological substances, initial encounter; Z88.0 Allergy status to penicillin; Z91.018 Allergy to other foods; Z91.048 Other nonmedicinal substance allergy status; Z88.8 Allergy status to other drugs, medicaments and biological substances
CPT/HCPCS: 36415; 80053; 83735; 84100; 85025; 99283; 96374; 96375; 96361; J2405; J1885; S0119

== ENCOUNTER 2024-04-08 16:49 | Emergency (ER) | payer OTHER ==
--- NOTE | 2024-04-08 17:11 | ED ---
General Adult HPI - General Source: patient, RN notes reviewed Mode of arrival: ambulatory Limitations: no limitations <Mirta Christie - Last Filed: 04/08/24 17:10> <Nav Young - Last Filed: 04/08/24 21:49> - General Stated complaint: abnormal labs Time Seen by Provider: 04/08/24 17:10 - History of Present Illness Initial comments: Quick note: 58-year-old female presented to the ER for evaluation of abnormal thyroid levels. Patient has a history of hypothyroidism. She had blood work drawn on Sunday and was contacted today due to abnormal levels. She states she takes 175 mcg of Synthroid. She states over the past 2 weeks she has missed 5-6 doses. Patient states she feels "rough". Patient is reporting back discomfort from shoulder blades to lumbar back she states has been ongoing for the past couple of weeks. (Mirta Christie) 58-year-old female presenting with chief complaint of abnormal thyroid levels. Patient states that she was sent by her PCP. She had blood work drawn on Sunday, she was contacted today and states that her TSH was 37 and was told to come to the ER. Patient states that she is had constipation, she is still passing gas. She has been having back pain from the level of her shoulder blades down the sides of her back. This has been ongoing since February. No injury or trauma. No loss of bowel or bladder control or saddle paresthesia. No chest pain or difficulty breathing. She has been having some right upper quadrant pain which has also been ongoing since February, patient has been evaluated in the ER for these complaints previously. No fever, chills, cough, congestion, sore throat, nausea, vomiting. (Nav Young) - Related Data Home Medications Medication Instructions Recorded Confirmed Cetirizine HCl [Zyrtec] 10 mg PO DAILY 12/21/14 08/13/18 Multivitamins, Thera [Theragran] 1 each PO DAILY 12/21/14 08/13/18 Simvastatin [Zocor] 40 mg PO HS 12/21/14 08/16/18 Triamterene-Hctz 37.5-25Mg 1 each PO BID 12/21/14 08/16/18 [Dyazide] traMADol HCl [Ultram] 50 mg PO Q4H PRN 12/21/14 08/16/18 Levothyroxine Sodium [Synthroid] 175 mcg PO DAILY 12/22/14 08/13/18 metFORMIN HCL [Glucophage] 500 mg PO BID 08/15/17 08/16/18 Albuterol Inhaler [Ventolin Hfa 1 - 2 puff INHALATION RT-Q6H PRN 08/13/18 08/13/18 Inhaler] Empagliflozin [Jardiance] 10 mg PO DAILY 08/13/18 08/13/18 sitaGLIPtin [Januvia] 25 mg PO DAILY 08/13/18 08/13/18 Previous Rx's Medication Instructions Recorded HYDROcodone/APAP 7.5-325MG [Etoile 1 each PO Q6HR PRN #28 tab 08/16/18 7.5] Cyclobenzaprine [Flexeril] 10 mg PO TID #14 tab 10/12/19 Allergies Allergy/AdvReac Type Severity Reaction Status Date / Time Penicillins Allergy Severe Anaphylaxis Verified 04/08/24 17:16 FRESH FRUITS AND VEGETABLES Allergy Severe Anaphylaxis Uncoded 04/08/24 17:16 BETA BLOCKERS Allergy Anaphylaxis Uncoded 04/08/24 17:16 IV contrast Allergy Unknown Uncoded 04/08/24 17:17 munjero Allergy Unknown Uncoded 04/08/24 17:17 Review of Systems ROS Other: All systems not noted in ROS Statement are negative. <Mirta Christie - Last Filed: 04/08/24 17:10> ROS Other: All systems not noted in ROS Statement are negative. <Nav Young - Last Filed: 04/08/24 21:49> ROS Statement: Those systems with pertinent positive or pertinent negative responses have been documented in the HPI. Past Medical History Past Medical History: Asthma, Diabetes Mellitus, Hyperlipidemia, Hypertension, Osteoarthritis (OA), Thyroid Disorder Additional Past Medical History / Comment(s): HX RIGHT BREAST MASS, HX ANEMIA, ASTHMA-COLD WEATHER & EXERCISE INDUCED (NO MEDS). BACK AND ARTHRITIS PAIN IN KNEES. Hx of graves disease, HAD RADIOACTIVE IODINE TX. VARICOSE VEINS. History of Any Multi-Drug Resistant Organisms: None Reported Past Surgical History: Tubal Ligation, Uterine Ablation Additional Past Surgical History / Comment(s): PARATHYROID RESECTION R/T TUMOR Past Anesthesia/Blood Transfusion Reactions: No Reported Reaction Past Psychological History: No Psychological Hx Reported Smoking Status: Never smoker Past Alcohol Use History: Rare Past Drug Use History: None Reported - Past Family History Mother Family Medical History: Cancer Additional Family Medical History / Comment(s): LUNG AND LIVER CANCER Daughter(s) Family Medical History: Cancer Additional Family Medical History / Comment(s): RHABDOMYOSARCOMA & HURTHLE CELL CANCER OF THYROID <Mirta Christie - Last Filed: 04/08/24 17:10> General Exam <Mirta Christie - Last Filed: 04/08/24 17:10> Limitations: no limitations General appearance: alert, in no apparent distress Head exam: Present: atraumatic, normocephalic, normal inspection Eye exam: Present: normal appearance, EOMI Neck exam: Present: normal inspection. Absent: meningismus Respiratory exam: Present: normal lung sounds bilaterally. Absent: respiratory distress, wheezes, rales, rhonchi, stridor Cardiovascular Exam: Present: regular rate, normal rhythm, normal heart sounds. Absent: systolic murmur, diastolic murmur, rubs, gallop, clicks Back exam: Present: normal inspection, paraspinal tenderness. Absent: vertebral tenderness Neurological exam: Present: alert, oriented X3 Psychiatric exam: Present: normal affect, normal mood Skin exam: Present: warm, dry, normal color <Nav Young - Last Filed: 04/08/24 21:49> - General Exam Comments Initial Comments: Visual Physical Exam Vital signs reviewed General: Well-appearing, nontoxic, no acute distress. Head: Normocephalic, atraumatic Eyes: PERRLA, EOMI ENT: Airway patent Chest: Nonlabored breathing Skin: No visual rash, normal skin tone Neuro: Alert and oriented 3 Musculoskeletal: No gross abnormalities (Mirta Christie) Course Vital Signs 04/08/24 04/08/24 04/08/24 17:12 19:45 20:55 Temperature 98.6 F 98.1 F Pulse Rate 81 72 70 Respiratory 18 18 18 Rate Blood Pressure 117/66 137/75 135/86 O2 Sat by Pulse 96 98 97 Oximetry Medical Decision Making <Mirta Christie - Last Filed: 04/08/24 17:10> - Lab Data Result diagrams: 04/08/24 19:44 04/08/24 19:44 <Nav Young - Last Filed: 04/08/24 21:49> - Medical Decision Making I performed the quick note portion of this chart. Electronically signed by Steinberg PA-C (Mirta Christie) Was pt. sent in by a medical professional or institution (YUE Torrez, SENIOR CUSTOMER SERVICE REPRESENTATIVE, urgent care, hospital, or [facility]...) When possible be specific @ -PCP Did you speak to anyone other than the patient for history (EMS, parent, family, police, friend...)? What history was obtained from this source @ -No Did you review nursing and triage notes (agree or disagree)? Why? @ -I reviewed and agree with nursing and triage notes Were old charts reviewed (outside hosp., previous admission, EMS record, old EKG, old radiological studies, urgent care reports/EKG's, [facility] records)? Report findings @ -No old charts were reviewed Differential Diagnosis (chest pain, altered mental status, abdominal pain women, abdominal pain men, vaginal bleeding, weakness, fever, dyspnea, syncope, headache, dizziness, GI bleed, back pain, seizure, CVA, palpatations, mental health, musculoskeletal)? @ -Differential includes uncomplicated primary hypothyroidism, myxedema coma, secondary hypothyroidism, not an all-inclusive list EKG interpreted by me (3pts min.). @ -As above X-rays interpreted by me (1pt min.). @ -None done CT interpreted by me (1pt min.). @ -None done U/S interpreted by me (1pt. min.). @ -None done What testing was considered but not performed or refused? (CT, X-rays, U/S, labs)? Why? @ -None What meds were considered but not given or refused? Why? @ -None Did you discuss the management of the patient with other professionals (professionals i.e. YUE Torrez, SENIOR CUSTOMER SERVICE REPRESENTATIVE, lab, RT, psych nurse, social media content specialist, coding consultant, teacher, nuclear officer, keycase assembler)? Give summary @ -No Was smoking cessation discussed for >3mins.? @ -No Was critical care preformed (if so, how long)? @ -No Were there social determinants of health that impacted care today? How? (Homelessness, low income, unemployed, alcoholism, drug addiction, transportatio n, low edu. Level, literacy, decrease access to med. care, [place] [facility], rehab)? @ -No Was there de-escalation of care discussed even if they declined (Discuss DNR or withdrawal of care, Hospice)? DNR status @ -No What co-morbidities impacted this encounter? (DM, HTN, Smoking, COPD, CAD, Cancer, CVA, ARF, Chemo, Hep., AIDS, mental health diagnosis, sleep apnea, morbid obesity)? @ -None Was patient admitted / discharged? Hospital course, mention meds given and route, prescriptions, significant lab abnormalities, going to OR and other pertinent info. @ -58-year-old female sent in by her PCP for elevated TSH. Patient has history of hypothyroidism, currently takes 175 mcg of Synthroid daily. History and physical examination are conducted. Vital signs are stable. Heart and lungs are clear to auscultation. No lower extremity swelling. The patient is A&O x 3. TSH 32.700, Free T4 less than 0.07. The patient is showing no evidence of confusion, she is having no shortness of breath, she has no lower extremity swelling, her vital signs are stable, patient clinically is not consistent with a diagnosis of myxedema coma. She has history of hypothyroidism. She is feeling well. She is educated on today's findings, she will call her PCP in the morning to discuss her lab results and any potential adjustments to her medications. Follow-up with PCP. Report back to ER with any new or worsening symptoms. Discussed return parameters and answered all questions. Patient conveyed verbal understanding and agreed to the plan. I discussed this case in detail with my attending Dr. Altamirano Undiagnosed new problem with uncertain prognosis? @ -No Drug Therapy requiring intensive monitoring for toxicity (Heparin, Nitro, Insulin, Cardizem)? @ -No Were any procedures done? @ -No Diagnosis/symptom? @ -Hypothyroidism Acute, or Chronic, or Acute on Chronic? @ -Acute on chronic Uncomplicated (without systemic symptoms) or Complicated (systemic symptoms)? @ -Uncomplicated Side effects of treatment? @ -No Exacerbation, Progression, or Severe Exacerbation? @ -No Poses a threat to life or bodily function? How? (Chest pain, [place], [place], pneumonia, PE, COPD, DKA, ARF, appy, cholecystitis, CVA, Diverticulitis, Homicidal, Suicidal, threat to staff... and all critical care pts) @ -Low likelihood (Nav Young) - Lab Data Lab Results 04/08/24 04/08/24 04/08/24 Range/Units 19:44 19:44 19:44 WBC 12.1 H (3.8-10.6) k/uL RBC 4.74 (3.80-5.40) m/uL Hgb 16.2 H (11.4-16.0) gm/dL Hct 46.4 H (34.0-46.0) % MCV 97.9 (80.0-100.0) fL MCH 34.1 (25.0-35.0) pg MCHC 34.9 (31.0-37.0) g/dL RDW 12.8 (11.5-15.5) % Plt Count 405 (150-450) k/uL MPV 7.1 Neutrophils % 74 % Lymphocytes % 19 % Monocytes % 5 % Eosinophils % 0 % Basophils % 1 % Neutrophils # 9.0 H (1.3-7.7) k/uL Lymphocytes # 2.3 (1.0-4.8) k/uL Monocytes # 0.6 (0-1.0) k/uL Eosinophils # 0.1 (0-0.7) k/uL Basophils # 0.1 (0-0.2) k/uL Sodium 135 L (137-145) mmol/L Potassium 3.7 (3.5-5.1) mmol/L Chloride 82 L (98-107) mmol/L Carbon Dioxide 36 H (22-30) mmol/L Anion Gap 17 mmol/L BUN 21 H (7-17) mg/dL Creatinine 0.87 (0.52-1.04) mg/dL Est GFR (CKD-EPI)AfAm 85 (>60 ml/min/1.73 sqM) Est GFR (CKD-EPI)NonAf 73 (>60 ml/min/1.73 sqM) Glucose 139 H (74-99) mg/dL Calcium 10.9 H (8.4-10.2) mg/dL Total Bilirubin 0.9 (0.2-1.3) mg/dL AST 41 H (14-36) U/L ALT 43 H (4-34) U/L Alkaline Phosphatase 100 (38-126) U/L Total Protein 9.5 H (6.3-8.2) g/dL Albumin 5.2 H (3.5-5.0) g/dL TSH 32.700 H (0.465-4.680) mIU/L Free T4 <0.07 L (0.78-2.19) ng/dL Urine Color Colorless Urine Appearance Clear (Clear) Urine pH 5.5 (5.0-8.0) Ur Specific Lannon 1.008 (1.001-1.035) Urine Protein Trace H (Negative) Urine Glucose (UA) 4+ H (Negative) Urine Ketones Trace H (Negative) Urine Blood Trace H (Negative) Urine Nitrite Negative (Negative) Urine Bilirubin Negative (Negative) Urine Urobilinogen <2.0 (<2.0) mg/dL Ur Leukocyte Esterase Small H (Negative) Urine RBC 1 (0-5) /hpf Urine WBC 19 H (0-5) /hpf Ur Squamous Epith Cells 2 (0-4) /hpf Influenza Type A (PCR) (Not Detectd) Influenza Type B (PCR) (Not Detectd) RSV (PCR) (Not Detectd) SARS-CoV-2 (PCR) (Not Detectd) 04/08/24 Range/Units 19:44 WBC (3.8-10.6) k/uL RBC (3.80-5.40) m/uL Hgb (11.4-16.0) gm/dL Hct (34.0-46.0) % MCV (80.0-100.0) fL MCH (25.0-35.0) pg MCHC (31.0-37.0) g/dL RDW (11.5-15.5) % Plt Count (150-450) k/uL MPV Neutrophils % % Lymphocytes % % Monocytes % % Eosinophils % % Basophils % % Neutrophils # (1.3-7.7) k/uL Lymphocytes # (1.0-4.8) k/uL Monocytes # (0-1.0) k/uL Eosinophils # (0-0.7) k/uL Basophils # (0-0.2) k/uL Sodium (137-145) mmol/L Potassium (3.5-5.1) mmol/L Chloride (98-107) mmol/L Carbon Dioxide (22-30) mmol/L Anion Gap mmol/L BUN (7-17) mg/dL Creatinine (0.52-1.04) mg/dL Est GFR (CKD-EPI)AfAm (>60 ml/min/1.73 sqM) Est GFR (CKD-EPI)NonAf (>60 ml/min/1.73 sqM) Glucose (74-99) mg/dL Calcium (8.4-10.2) mg/dL Total Bilirubin (0.2-1.3) mg/dL AST (14-36) U/L ALT (4-34) U/L Alkaline Phosphatase (38-126) U/L Total Protein (6.3-8.2) g/dL Albumin (3.5-5.0) g/dL TSH (0.465-4.680) mIU/L Free T4 (0.78-2.19) ng/dL Urine Color Urine Appearance (Clear) Urine pH (5.0-8.0) Ur Specific Lannon (1.001-1.035) Urine Protein (Negative) Urine Glucose (UA) (Negative) Urine Ketones (Negative) Urine Blood (Negative) Urine Nitrite (Negative) Urine Bilirubin (Negative) Urine Urobilinogen (<2.0) mg/dL Ur Leukocyte Esterase (Negative) Urine RBC (0-5) /hpf Urine WBC (0-5) /hpf Ur Squamous Epith Cells (0-4) /hpf Influenza Type A (PCR) Not Detected (Not Detectd) Influenza Type B (PCR) Not Detected (Not Detectd) RSV (PCR) Not Detected (Not Detectd) SARS-CoV-2 (PCR) Not Detected (Not Detectd) Disposition <Mirta Christie - Last Filed: 04/08/24 17:10> Is patient prescribed a controlled substance at d/c from ED?: No Time of Disposition: 21:24 <Nav Young - Last Filed: 04/08/24 21:49> Clinical Impression: Hypothyroidism Disposition: HOME SELF-CARE Condition: Good Instructions (If sedation given, give patient instructions): Hypothyroidism (ED) Additional Instructions: Follow-up with your PCP regarding your thyroid levels, call the office in the morning. Report back to ER with any new or worsening symptoms, including but not limited to confusion, extreme fatigue, dizziness, lower extremity swelling, shortness of breath. Referrals: Wood Montez DO [Primary Care Provider] - 1-2 days
[2024-04-08 17:16] VITALS: RESP 18
[2024-04-08 19:50] VITALS: TEMP 98.1
[2024-04-08 19:51] LABS: Basophils # (A) 0.1 k/uL (0-0.2); Basophils % (A) 1 %; Eosinophils # (A) 0.1 k/uL (0-0.7); Eosinophils % (A) 0 %; HCT 46.4 % (34.0-46.0); HGB 16.2 gm/dL (11.4-16.0); Lymphocytes # (A) 2.3 k/uL (1.0-4.8); Lymphocytes % (A) 19 %; MCH 34.1 pg (25.0-35.0); MCHC 34.9 g/dL (31.0-37.0); MCV 97.9 fL (80.0-100.0); Mean Platelet Volume 7.1; Monocytes # (A) 0.6 k/uL (0-1.0); Monocytes % (A) 5 %; Neutrophils % (A) 74 %; Platelet Count 405 k/uL (150-450); RBC 4.74 m/uL (3.80-5.40); RDW 12.8 % (11.5-15.5); WBC 12.1 k/uL (3.8-10.6)
[2024-04-08 20:07] LABS: ALT 43 U/L (4-34); AST 41 U/L (14-36); African American GFR (CKD) 85 (>60 ml/min/1.73 sqM); Albumin 5.2 g/dL (3.5-5.0); Alkaline Phosphatase 100 U/L (38-126); Blood Urea Nitrogen 21 mg/dL (7-17); Calcium 10.9 mg/dL (8.4-10.2); Chloride 82 mmol/L (98-107); Glucose 139 mg/dL (74-99); Non-African American GFR(CKD) 73 (>60 ml/min/1.73 sqM); Potassium 3.7 mmol/L (3.5-5.1); Sodium 135 mmol/L (137-145); Total Bilirubin 0.9 mg/dL (0.2-1.3); Total Protein 9.5 g/dL (6.3-8.2)
[2024-04-08 20:10] LABS: Appearance,Urine Clear (Clear); Bilirubin,Urine Negative (Negative); Blood,Urine Trace (Negative); Color,Urine Colorless; Glucose,Urine (UA) 4+ (Negative); Ketones,Urine Trace (Negative); Leukocyte Esterase,Urine Small (Negative); Nitrite,Urine Negative (Negative); PH, Urine 5.5 (5.0-8.0); Protein,Urine Trace (Negative); RBC,Urine 1 /hpf (0-5); Specific Gravity,Urine 1.008 (1.001-1.035); Squamous Epithelial Cell,Urine 2 /hpf (0-4); Urobilinogen,Urine <2.0 mg/dL (<2.0); WBC,Urine 19 /hpf (0-5)
[2024-04-08 20:13] LABS: Anion Gap 17 mmol/L; Carbon Dioxide 36 mmol/L (22-30)
[2024-04-08 20:25] LABS: Influenza A Not Detected (Not Detectd); Influenza B Not Detected (Not Detectd); RSV Not Detected (Not Detectd)
[2024-04-08 20:56] VITALS: BP 135/86; PULSE 70
[2024-04-08 21:08] LABS: T4, Free (Free Thyroxine) <0.07 ng/dL (0.78-2.19)
== END 2024-04-08 21:54 | disposition home or self-care (01) ==
LOC: EC 16:49
DX: E03.9 Hypothyroidism, unspecified (principal); Z11.52 Encounter for screening for COVID-19; Z88.0 Allergy status to penicillin; Z91.018 Allergy to other foods; Z91.041 Radiographic dye allergy status; Z88.8 Allergy status to other drugs, medicaments and biological substances
CPT/HCPCS: 36415; 80053; 81001; 84439; 84443; 85025; 87086; 87636; 99283